=== PATIENT | male | born 1960 | race African-American/Black ===

== ENCOUNTER 2017-03-16 17:29 | Emergency (ER) | payer OTHER ==
[~2017-03-16] VITALS: Ht 172.7 cm; Wt 90.7 kg
--- NOTE | 2017-03-16 17:45 | NUR ---
pt sent fr [facility] for med clearance, voluntary admission to [facility] for SI, also c/o chronic lt calf pain, worsening x several days w/ swelling, ambulatory w/ cane, afebrile w/ resp even & unlabored, calm and cooperative at this time w/ nad noted. Urine obtained & sent. Pending further eval fr [facility].
--- NOTE | 2017-03-16 18:11 | NUR ---
ASSEMBLY MACHINE OPERATOR AT BEDSIDE FOR BLOOD DRAW.
--- NOTE | 2017-03-16 18:15 | NUR ---
Derek mcdonald in ED - 03/16/17 at 1915 by TANVIR US TECH AT [facility] FOR US PARAG [facility].
[2017-03-16 18:17] LABS: APPEARANCE,URINE Clear (CLEAR); BILIRUBIN,URINE Negative (NEGATIVE); BLOOD, URINE Negative Ery/uL (NEGATIVE); COLOR,URINE Yellow (YELLOW); KETONES,URINE Negative (NEGATIVE); LEUKOCYTE ESTERASE ,URINE Negative (NEGATIVE); NITRITE, URINE Negative (NEGATIVE); PROTEIN,URINE 30 mg/dl (NEGATIVE); UGLUCOSE Negative (NEGATIVE); UROBILINOGEN,URINE 0.2 EU/dL (0.2)
[2017-03-16 18:22] LABS: BASOPHILS # (AUTO) 0.1 /CMM (0.0-0.2); BASOPHILS % (AUTO) 0.6 % (0.0-2.0); EOSINOPHILS # (AUTO) 0.1 /CMM (0.0-0.7); EOSINOPHILS % (AUTO) 0.8 % (0.0-6.0); HEMATOCRIT 44 % (39-51); HEMOGLOBIN 14.8 g/dL (13.5-17.5); LYMPHOCYTES # (AUTO) 2.7 /CMM (0.8-4.8); LYMPHOCYTES % (AUTO) 28.8 % (20.0-44.0); MEAN CORPUSCULAR HEMOGLOBIN 31 PG (26.0-33.0); MEAN CORPUSCULAR HGB CONC 34 g/dl (31.0-36.0); MEAN CORPUSCULAR VOLUME 92 fL (80-96); MONOCYTES # (AUTO) 0.6 /CMM (0.1-1.30); MONOCYTES % (AUTO) 6.1 % (2.0-12.0); NEUTROPHILS # (AUTO) 5.9 /CMM (1.8-8.9); NEUTROPHILS % (AUTO) 63.7 % (43.0-81.0); PLATELET COUNT (AUTO) 248 /CMM (150-450); RDW COEFFICIENT OF VARIATION 13.3 (11.5-15.0); RED BLOOD CELL COUNT(AUTO) 4.75 MIL/uL (4.5-6.0); WHITE BLOOD COUNT (AUTO) 9.4 K/uL (4.3-11.0)
[2017-03-16 18:27] LABS: BACTERIA,URINE None seen /HPF (None Seen); RBC,URINE 0-2 /HPF (0-2); SQUAMOUS EPITHELIAL CELL,UR Rare /HPF (None Seen); WBC,URINE 0-2 /HPF (0-3)
[2017-03-16 18:34] LABS: CARBON DIOXIDE 24 mmol/L (21-32); CHLORIDE 103 mmol/L (98-107); CREATININE 0.9 mg/dL (0.6-1.3); GLUCOSE 122 mg/dL (74-106); POTASSIUM 4.2 mmol/L (3.5-5.1); SODIUM SERUM 138 mmol/L (136-145); UREA NITROGEN, BLOOD 11 mg/dL (7-18)
[2017-03-16 18:45] LABS: ALANINE AMINOTRANSFERASE 48 U/L (12-78); ALBUMIN 3.9 g/dL (3.4-5.0); ALCOHOL, BLOOD < 3 mg/dL (0-0); ALKALINE PHOSPHATASE 77 U/L (46-116); ASPARTATE AMINOTRANSFERASE 37 U/L (15-37); BILIRUBIN,DIRECT 0.1 mg/dL (0.0-0.2); BILIRUBIN,TOTAL 0.6 mg/dL (0.2-1.0); TOTAL PROTEIN, SERUM 7.7 g/dL (6.4-8.2)
[2017-03-16 18:46] LABS: ACETAMINOPHEN < 10 ug/ml (10-30); SALICYLATE 0.7 mg/dL (2.8-20.0)
--- NOTE | 2017-03-16 18:51 | NUR ---
pt resting comfortably in bed w/ resp even & unlabored, nad noted. Awaiting US DV LLE.
--- NOTE | 2017-03-16 19:16 | NUR ---
US TECH ETA FOR US DV LLE 5MINS AWAY.
--- NOTE | 2017-03-16 19:31 | NUR ---
U/S TECH AT BEDSIDE FOR BLE DUPLEX ULTRASOUND.
--- NOTE | 2017-03-16 20:29 | NUR ---
MOSHE MARCUM TO EXPEDITE REPORT OF VENOUS DUPLEX STUDY.
--- NOTE | 2017-03-16 20:57 | NUR ---
Patient discharged by taxi for transport to [facility] in stable condition. Pt accepted by Po Arrington at [facility] intake . Written and verbal after care instructions given. Patient verbalizes understanding of instruction. Pt ambulatory with a steady gait. VSS, NAD noted on steady gait. Denies complaint on DC.
[2017-03-16 21:55] VITALS: BP 113/39
== END 2017-03-16 20:57 ==
LOC: ER 17:33
DX: Z00.8 Encounter for other general examination (principal); F41.9 Anxiety disorder, unspecified; F20.9 Schizophrenia, unspecified; R60.0 Localized edema; I10 Essential (primary) hypertension
CPT/HCPCS: 36415; 80048-TC; 80076-TC; 80305; 81000-TC; 85025-TC; 93971-TC; A4606; G0480; Z7610

== ENCOUNTER 2017-07-25 07:34 | Emergency (ER) | payer OTHER ==
[~2017-07-25] VITALS: Ht 170.2 cm; Wt 86.2 kg
--- NOTE | 2017-07-25 07:45 | NUR ---
PRESENTS TO ER C/O DEPRESSION AND SI, "MY BROTHER JUST ." "[facility] PATIENT IS A/OX 4. BREATHING EVEN AND UNLABORED. NO SOB. VITALS STABLE. SAFETY AND COMFORT MEASURES IN PLACE. AWAITING MD ORDERS.
--- NOTE | 2017-07-25 08:12 | NUR ---
URINE OBTAINED AND SENT TO LAB .
--- NOTE | 2017-07-25 08:15 | NUR ---
COILER AT BEDSIDE FOR BLOOD DRAW.
[2017-07-25 08:42] LABS: BASOPHILS % (AUTO) 0.3 % (0.0-2.0); EOSINOPHILS # (AUTO) 0.1 /CMM (0.0-0.7); EOSINOPHILS % (AUTO) 0.9 % (0.0-6.0); HEMATOCRIT 48 % (39-51); HEMOGLOBIN 16.3 g/dL (13.5-17.5); LYMPHOCYTES # (AUTO) 2.7 /CMM (0.8-4.8); LYMPHOCYTES % (AUTO) 36.5 % (20.0-44.0); MEAN CORPUSCULAR HEMOGLOBIN 32 PG (26.0-33.0); MEAN CORPUSCULAR HGB CONC 34 g/dl (31.0-36.0); MEAN CORPUSCULAR VOLUME 92 fL (80-96); MONOCYTES # (AUTO) 0.5 /CMM (0.1-1.30); MONOCYTES % (AUTO) 6.8 % (2.0-12.0); NEUTROPHILS # (AUTO) 4.1 /CMM (1.8-8.9); NEUTROPHILS % (AUTO) 55.5 % (43.0-81.0); PLATELET COUNT (AUTO) 280 /CMM (150-450); RDW COEFFICIENT OF VARIATION 14.1 (11.5-15.0); RED BLOOD CELL COUNT(AUTO) 5.17 MIL/uL (4.5-6.0); WHITE BLOOD COUNT (AUTO) 7.4 K/uL (4.3-11.0)
[2017-07-25 08:49] LABS: CALCIUM, SERUM 9.1 mg/dL (8.5-10.1); CARBON DIOXIDE 27 mmol/L (21-32); CHLORIDE 104 mmol/L (98-107); CREATININE 0.9 mg/dL (0.6-1.3); GLUCOSE 95 mg/dL (74-106); POTASSIUM 3.9 mmol/L (3.5-5.1); SODIUM SERUM 138 mmol/L (136-145); UREA NITROGEN, BLOOD 10 mg/dL (7-18)
[2017-07-25 08:55] LABS: ALANINE AMINOTRANSFERASE 51 U/L (12-78); ALBUMIN 4.4 g/dL (3.4-5.0); ALCOHOL, BLOOD < 3 mg/dL (0-0); ALKALINE PHOSPHATASE 83 U/L (46-116); ASPARTATE AMINOTRANSFERASE 37 U/L (15-37); BILIRUBIN,DIRECT 0.1 mg/dL (0.0-0.2); BILIRUBIN,TOTAL 0.9 mg/dL (0.2-1.0); TOTAL PROTEIN, SERUM 8.4 g/dL (6.4-8.2)
[2017-07-25 08:56] LABS: ACETAMINOPHEN 0 ug/ml (10-30); SALICYLATE < 0.2 mg/dL (2.8-20.0)
[2017-07-25 09:07] LABS: APPEARANCE,URINE CLEAR (CLEAR); BILIRUBIN,URINE NEGATIVE (NEGATIVE); BLOOD, URINE NEGATIVE Ery/uL (NEGATIVE); COLOR,URINE DARK YELLO (YELLOW); KETONES,URINE NEGATIVE (NEGATIVE); LEUKOCYTE ESTERASE ,URINE NEGATIVE (NEGATIVE); NITRITE, URINE NEGATIVE (NEGATIVE); PROTEIN,URINE TRACE mg/dl (NEGATIVE); UGLUCOSE NEGATIVE (NEGATIVE); UROBILINOGEN,URINE 0.2 EU/dL (0.2)
[2017-07-25 09:23] LABS: BACTERIA,URINE Rare /HPF (None Seen); MUCUS,URINE Few /LPF (None Seen); RBC,URINE 0-2 /HPF (0-2); SQUAMOUS EPITHELIAL CELL,UR Few /HPF (None Seen); WBC,URINE 0-2 /HPF (0-3)
--- NOTE | 2017-07-25 09:33 | NUR ---
FAXED PT'S LAB TESTS TO [facility] [phone]
[2017-07-25 10:27] VITALS: BP 148/92
--- NOTE | 2017-07-25 10:31 | NUR ---
Patient discharged to [facility] in stable condition. Written and verbal after care instructions given. Patient verbalizes understanding of instruction.
== END 2017-07-25 10:31 ==
LOC: ER 07:36
DX: R44.0 Auditory hallucinations (principal); R45.851 Suicidal ideations; F20.9 Schizophrenia, unspecified; F31.9 Bipolar disorder, unspecified; I10 Essential (primary) hypertension; F10.10 Alcohol abuse, uncomplicated; F17.200 Nicotine dependence, unspecified, uncomplicated
CPT/HCPCS: 36415; 80048; 80076; 80305; 80329; 81001; 85025; 99285; A4606; G0480 ×2; Z7610; 81000-TC

== ENCOUNTER 2017-12-27 07:35 | Emergency (ER) | payer OTHER ==
[~2017-12-27] VITALS: Ht 167.6 cm; Wt 90.7 kg
[2017-12-27 07:35] VITALS: BP 135/73
--- NOTE | 2017-12-27 07:40 | NUR ---
AAOX3, SENT FROM [facility] FOR MEDICAL CLEARANCE. RR IS EVEN AND UNLABORED WITH NAD NOTED. SKIN IS WARM AND DRY. AWAITING MD FOR EVAL.
[2017-12-27 09:14] LABS: BASOPHILS % (AUTO) 0.7 % (0.0-2.0); EOSINOPHILS % (AUTO) 2.2 % (0.0-6.0); HEMATOCRIT 45 % (39-51); HEMOGLOBIN 15.1 g/dL (13.5-17.5); LYMPHOCYTES # (AUTO) 2.9 /CMM (0.8-4.8); LYMPHOCYTES % (AUTO) 46.2 % (20.0-44.0); MEAN CORPUSCULAR HGB CONC 34 g/dl (31.0-36.0); MEAN CORPUSCULAR VOLUME 92 fL (80-96); MONOCYTES # (AUTO) 0.4 /CMM (0.1-1.30); MONOCYTES % (AUTO) 6.6 % (2.0-12.0); NEUTROPHILS # (AUTO) 2.8 /CMM (1.8-8.9); NEUTROPHILS % (AUTO) 44.3 % (43.0-81.0); PLATELET COUNT (AUTO) 256 /CMM (150-450); RDW COEFFICIENT OF VARIATION 13.1 (11.5-15.0); RED BLOOD CELL COUNT(AUTO) 4.83 MIL/uL (4.5-6.0); WHITE BLOOD COUNT (AUTO) 6.2 K/uL (4.3-11.0)
[2017-12-27 09:25] LABS: CALCIUM, SERUM 8.7 mg/dL (8.5-10.1); CARBON DIOXIDE 29 mmol/L (21-32); CHLORIDE 105 mmol/L (98-107); CREATININE 0.8 mg/dL (0.6-1.3); GLUCOSE 89 mg/dL (74-106); POTASSIUM 4.2 mmol/L (3.5-5.1); SODIUM SERUM 137 mmol/L (136-145); UREA NITROGEN, BLOOD 9 mg/dL (7-18)
[2017-12-27 09:26] LABS: ACETAMINOPHEN 0 ug/ml (10-30); ALCOHOL, BLOOD < 3 mg/dL (0-0); SALICYLATE < 2.8 mg/dL (2.8-20.0)
--- NOTE | 2017-12-27 09:41 | NUR ---
CALLED [facility] 20 MINUTES. TRIP # [id number]
== END 2017-12-27 10:52 ==
LOC: ER 07:36
DX: F28 Other psychotic disorder not due to a substance or known physiological condition (principal); I10 Essential (primary) hypertension; F20.9 Schizophrenia, unspecified; F32.9 Major depressive disorder, single episode, unspecified; F17.200 Nicotine dependence, unspecified, uncomplicated
CPT/HCPCS: 36415; 80048; 80305; 80329; 85025; 99285; A4606; G0480 ×2; Z7610

== ENCOUNTER 2018-09-30 11:34 | Emergency (ER) | payer OTHER ==
[~2018-09-30] VITALS: Ht 172.7 cm; Wt 103.4 kg
--- NOTE | 2018-09-30 11:40 | NUR ---
BIB SELF W SI "BEEN HEARING VOICES TO CUT MY WRIST" STARTED YESTERDAY, HX OF DEPRESSION/BIPOLAR, TO ER BED 12, HOOKED TO MONITOR, AWAITING MD DUNAWAY
--- NOTE | 2018-09-30 11:48 | NUR ---
DR PEPPER AT BEDSIDE
--- NOTE | 2018-09-30 11:59 | NUR ---
PT CAN'T PROVIDE URINE SAMPLE AT THIS TIME
[2018-09-30 12:04] LABS: BASOPHILS % (AUTO) 0.1 % (0.0-2.0); EOSINOPHILS % (AUTO) 1.1 % (0.0-6.0); HEMATOCRIT 44 % (39-51); LYMPHOCYTES # (AUTO) 1.9 /CMM (0.8-4.8); LYMPHOCYTES % (AUTO) 27.3 % (20.0-44.0); MEAN CORPUSCULAR HGB CONC 34 g/dl (31.0-36.0); MEAN CORPUSCULAR VOLUME 94 fL (80-96); MONOCYTES # (AUTO) 0.7 /CMM (0.1-1.30); MONOCYTES % (AUTO) 10.7 % (2.0-12.0); NEUTROPHILS # (AUTO) 4.1 /CMM (1.8-8.9); NEUTROPHILS % (AUTO) 60.8 % (43.0-81.0); PLATELET COUNT (AUTO) 181 /CMM (150-450); RED BLOOD CELL COUNT(AUTO) 4.66 MIL/uL (4.5-6.0); WHITE BLOOD COUNT (AUTO) 6.8 K/uL (4.3-11.0)
--- NOTE | 2018-09-30 12:05 | NUR ---
URINE SAMPLE SENT TO LAB
[2018-09-30 12:14] LABS: CALCIUM, SERUM 8.8 mg/dL (8.5-10.1); CARBON DIOXIDE 29 mmol/L (21-32); CHLORIDE 105 mmol/L (98-107); CREATININE 0.9 mg/dL (0.6-1.3); GLUCOSE 96 mg/dL (74-106); POTASSIUM 3.8 mmol/L (3.5-5.1); SODIUM SERUM 142 mmol/L (136-145); UREA NITROGEN, BLOOD 12 mg/dL (7-18)
[2018-09-30 12:19] LABS: ALANINE AMINOTRANSFERASE 81 U/L (12-78); ALBUMIN 3.8 g/dL (3.4-5.0); ALCOHOL, BLOOD < 3 mg/dL (0-0); ALKALINE PHOSPHATASE 70 U/L (46-116); ASPARTATE AMINOTRANSFERASE 64 U/L (15-37); BILIRUBIN,DIRECT 0.2 mg/dL (0.0-0.2); BILIRUBIN,TOTAL 0.8 mg/dL (0.2-1.0); TOTAL PROTEIN, SERUM 7.9 g/dL (6.4-8.2)
[2018-09-30 12:20] LABS: ACETAMINOPHEN < 2 ug/ml (10-30); SALICYLATE 0.9 mg/dL (2.8-20.0)
[2018-09-30 12:28] LABS: APPEARANCE,URINE CLEAR (CLEAR); BILIRUBIN,URINE NEGATIVE (NEGATIVE); BLOOD, URINE NEGATIVE Ery/uL (NEGATIVE); COLOR,URINE YELLOW (YELLOW); KETONES,URINE TRACE (NEGATIVE); LEUKOCYTE ESTERASE ,URINE NEGATIVE (NEGATIVE); NITRITE, URINE NEGATIVE (NEGATIVE); PH,URINE 6.5 (5.0-8.0); PROTEIN,URINE NEGATIVE (NEGATIVE); UGLUCOSE NEGATIVE (NEGATIVE)
--- NOTE | 2018-09-30 12:31 | NUR ---
CIVILIAN TECHNICIAN AT BEDSIDE
[2018-09-30 12:34] LABS: SQUAMOUS EPITHELIAL CELL,UR Rare /HPF (None Seen)
[2018-09-30 12:35] LABS: MUCUS,URINE Few /LPF (None Seen)
[2018-09-30 12:36] LABS: BACTERIA,URINE Rare /HPF (None Seen); RBC,URINE 0-2 /HPF (0-2); WBC,URINE 0-2 /HPF (0-3)
[2018-09-30] MEDS ORDERED: LORAZEPAM 1 MG TABLET PO ONE ×2 (13:00→18:00)
[2018-09-30] MEDS ORDERED: LORAZEPAM 1 MG TABLET ONE ×2 (13:19→17:51)
--- NOTE | 2018-09-30 13:30 | NUR ---
PT COMFORTABLY SLEEPING IN BED, HOOKED TO MONITOR, WILL CONTINUE TO MONITOR
--- NOTE | 2018-09-30 16:01 | NUR ---
PROVIDED PT W MEAL TRAY
--- NOTE | 2018-09-30 17:52 | NUR ---
[facility] [phone]
--- NOTE | 2018-09-30 17:55 | NUR ---
PROVIDED PT WITH ORANGE JUICE AND MILK
--- NOTE | 2018-09-30 19:48 | NUR ---
PT COMFORTABLE IN BED ASLEEP. VSS. WILL CONTINUE TO MONITOR.
--- NOTE | 2018-09-30 22:49 | NUR ---
PT IN BED COMFORTABLY ASLEEP. EASILY AROUSED BY VOICE. VSS. WILL CONTINUE TO MONITOR
--- NOTE | 2018-09-30 23:26 | NUR ---
PER ALEKS NO BEDS AVAILABLE AT [facility] AND [facility]. PT CAN STAY UNTIL MORNING WHEN BEDS AT [facility] BECOME AVAILABLE. OK TO VOLUNTARILY DISCHARGE.
--- NOTE | 2018-09-30 23:26 | NUR ---
SPOKE TO [facility], NO AVAILABLE BED IN [facility], WILL WAIT FOR DISCHARGES IN THE MORNING AND FOLLOW UP.
--- NOTE | 2018-10-01 00:20 | NUR ---
PT IN BED COMFORTABLY ASLEEP, EASILY AROUSED BY VOICE, HOOKED TO MONITOR, WILL CONTINUE TO MONITOR.
--- NOTE | 2018-10-01 00:32 | NUR ---
PROVIDED PT W TUNA SANDWICH AND ORANGE JUICE. PT TOLERATING PO WELL. PROVIDED WITH WARM BLANKETS.
[2018-10-01] MEDS ORDERED: TRAZODONE 50 MG TABLET ONE (00:37)
[2018-10-01] MEDS ORDERED: TRAZODONE 50 MG TABLET PO ONE (01:00)
--- NOTE | 2018-10-01 02:23 | NUR ---
PT IN BED COMFORTABLY ASLEEP, HOOKED TO MONITOR, WILL CONTINUE TO MONITOR.
--- NOTE | 2018-10-01 02:31 | NUR ---
REPORT GIVEN TO ELIECER MOON FOR JAGDISH
--- NOTE | 2018-10-01 04:40 | NUR ---
PT RESTING COMFORTABLY IN BED. VITAL SIGNS STABLE. WILL CONTINUE TO MONITOR
--- NOTE | 2018-10-01 07:30 | NUR ---
received report from night RN. Patient is awake, resting, denies any pain at this time. Awaiting for bed at [facility]. Kept comfortable. will continue to monitor accordingly.
--- NOTE | 2018-10-01 08:22 | NUR ---
JEEVAN ,INTAKE, CALLED AT [facility], ACCEPTED
--- NOTE | 2018-10-01 08:28 | NUR ---
[facility] CALLED. ETA 1000. TRIP #[id number]
[2018-10-01 09:16] VITALS: BP 147/99
--- NOTE | 2018-10-01 11:00 | NUR ---
TRANSFERED TO [facility]. STABLE CONDITION.
== END 2018-10-01 11:00 ==
LOC: ER 11:41
DX: F31.9 Bipolar disorder, unspecified (principal); F19.10 Other psychoactive substance abuse, uncomplicated; I10 Essential (primary) hypertension; F20.9 Schizophrenia, unspecified; F17.200 Nicotine dependence, unspecified, uncomplicated; Z98.890 Other specified postprocedural states
CPT/HCPCS: 36415; 80048; 80076; 80305; 80307; 80329; 81001; 85025; 99285; A4606; G0480; 81000-TC

== ENCOUNTER 2018-11-07 17:31 | Emergency (ER) | payer OTHER ==
[~2018-11-07] VITALS: Ht 170.2 cm; Wt 99.8 kg
[2018-11-07] MEDS ORDERED: diphenhydrAMINE HCL 25 MG CAPSULE PO ONE (18:00)
[2018-11-07] MEDS ORDERED: LORAZEPAM 1 MG TABLET PO ONE (18:00)
[2018-11-07 18:12] LABS: BASOPHILS % (AUTO) 0.5 % (0.0-2.0); EOSINOPHILS % (AUTO) 0.6 % (0.0-6.0); HEMATOCRIT 45 % (39-51); HEMOGLOBIN 15.7 g/dL (13.5-17.5); LYMPHOCYTES # (AUTO) 3.9 /CMM (0.8-4.8); LYMPHOCYTES % (AUTO) 42.5 % (20.0-44.0); MEAN CORPUSCULAR HGB CONC 35 g/dl (31.0-36.0); MEAN CORPUSCULAR VOLUME 93 fL (80-96); MONOCYTES # (AUTO) 0.7 /CMM (0.1-1.30); MONOCYTES % (AUTO) 8.1 % (2.0-12.0); NEUTROPHILS # (AUTO) 4.4 /CMM (1.8-8.9); NEUTROPHILS % (AUTO) 48.3 % (43.0-81.0); PLATELET COUNT (AUTO) 340 /CMM (150-450); RED BLOOD CELL COUNT(AUTO) 4.88 MIL/uL (4.5-6.0); WHITE BLOOD COUNT (AUTO) 9.1 K/uL (4.3-11.0)
[2018-11-07 18:15] LABS: APPEARANCE,URINE Clear (CLEAR); BILIRUBIN,URINE Negative (NEGATIVE); BLOOD, URINE Negative Ery/uL (NEGATIVE); COLOR,URINE Yellow (YELLOW); KETONES,URINE Negative (NEGATIVE); LEUKOCYTE ESTERASE ,URINE Negative (NEGATIVE); NITRITE, URINE Negative (NEGATIVE); PH,URINE 5.5 (5.0-8.0); PROTEIN,URINE 30 mg/dl (NEGATIVE); UGLUCOSE Negative (NEGATIVE); UROBILINOGEN,URINE 0.2 EU/dL (0.2)
[2018-11-07 18:20] LABS: CALCIUM, SERUM 9.3 mg/dL (8.5-10.1); CARBON DIOXIDE 27 mmol/L (21-32); CHLORIDE 103 mmol/L (98-107); CREATININE 0.9 mg/dL (0.6-1.3); GLUCOSE 115 mg/dL (74-106); POTASSIUM 3.4 mmol/L (3.5-5.1); SODIUM SERUM 138 mmol/L (136-145); UREA NITROGEN, BLOOD 9 mg/dL (7-18)
[2018-11-07 18:25] LABS: BACTERIA,URINE Rare /HPF (None Seen); MUCUS,URINE Few /LPF (None Seen); RBC,URINE 0-2 /HPF (0-2); SQUAMOUS EPITHELIAL CELL,UR Rare /HPF (None Seen); URINE AMORPHOUS URATE Few /HPF (None Seen); WBC,URINE 0-2 /HPF (0-3)
[2018-11-07 18:26] LABS: ACETAMINOPHEN < 5 ug/ml (10-30); ALANINE AMINOTRANSFERASE 48 U/L (12-78); ALBUMIN 4.5 g/dL (3.4-5.0); ALCOHOL, BLOOD < 5 mg/dL (0-0); ALKALINE PHOSPHATASE 76 U/L (46-116); ASPARTATE AMINOTRANSFERASE 29 U/L (15-37); BILIRUBIN,DIRECT 0.1 mg/dL (0.0-0.2); BILIRUBIN,TOTAL 0.5 mg/dL (0.2-1.0); SALICYLATE 0.6 mg/dL (2.8-20.0); TOTAL PROTEIN, SERUM 8.1 g/dL (6.4-8.2)
--- NOTE | 2018-11-07 18:52 | NUR ---
CALLED [facility], ONE HOUR ETA
--- NOTE | 2018-11-07 19:30 | NUR ---
ASSUMED CARE 193
[2018-11-07] MEDS ORDERED: LORAZEPAM 1 MG TABLET ONE (19:42)
[2018-11-07] MEDS ORDERED: diphenhydrAMINE HCL 25 MG CAPSULE ONE (19:42)
--- NOTE | 2018-11-07 22:38 | NUR ---
PT ACCEPTED TO [facility] ADMITTING PHYSICIAN: DR. ELI NUMBER FOR REPORT: [phone] ETA 0000, TRIP NUMBER [id number]
--- NOTE | 2018-11-08 00:04 | NUR ---
PT REFUSED TO GO TO [facility], CALLED INTAKE AND PT NOW BEING ADMITTED TO [facility]. ADMITTING PHYSICIAN DR. UPTON NUMBER FOR REPORT: [phone] EXT [phone]
--- NOTE | 2018-11-08 00:14 | NUR ---
GAVE REPORT TO RED AT [facility] FOR JAGDISH
[2018-11-08 00:40] VITALS: BP 135/94
--- NOTE | 2018-11-08 00:43 | NUR ---
GAVE REPORT TO NATALIA FOR TRANSPORTATION JAGDISH
== END 2018-11-08 00:47 | disposition short-term general hospital (02) ==
LOC: ER 17:32
DX: R45.851 Suicidal ideations (principal); I10 Essential (primary) hypertension; F17.200 Nicotine dependence, unspecified, uncomplicated; Z98.890 Other specified postprocedural states
CPT/HCPCS: 36415; 80048; 80076; 80305; 80307; 80329; 81001; 85025; 99285; G0480; Q0163; 81000-TC

== ENCOUNTER 2019-01-27 11:07 | Emergency (ER) | payer OTHER ==
[~2019-01-27] VITALS: Ht 170.2 cm; Wt 99.3 kg
--- NOTE | 2019-01-27 11:13 | NUR ---
WENT TO [facility] FOR VOLLUNTARY ADMISSION BUT WAS TOLD TO COME HERE IN[facility] FOR MEDICAL CLEARANCE, "FEELING SUICIDAL". STATES HEARING VOICES THAT TELL HIM TO CUT HIMSELF. DENIES HI/VH. NO OTHER COMPLAINTS AT THIS TIME. SUICIDE PRECAUTIONS IMPLEMENTED. MADE COMFORTABLE. DR ADLER AT BEDSIDE FOR EVAL.
--- NOTE | 2019-01-27 11:14 | NUR ---
PT IS CALM AND COOPERATIVE
--- NOTE | 2019-01-27 11:36 | NUR ---
GOWNED, ALL BELONGINGS REMOVED FROM ROOM, SECURITY CALLED FOR WANDING
[2019-01-27 11:45] LABS: BASOPHILS % (AUTO) 0.2 % (0.0-2.0); HEMATOCRIT 49 % (39-51); HEMOGLOBIN 16.7 g/dL (13.5-17.5); LYMPHOCYTES # (AUTO) 2.6 /CMM (0.8-4.8); LYMPHOCYTES % (AUTO) 24.2 % (20.0-44.0); MEAN CORPUSCULAR HGB CONC 34 g/dl (31.0-36.0); MEAN CORPUSCULAR VOLUME 94 fL (80-96); MONOCYTES # (AUTO) 0.8 /CMM (0.1-1.30); MONOCYTES % (AUTO) 7.5 % (2.0-12.0); NEUTROPHILS # (AUTO) 7.1 /CMM (1.8-8.9); NEUTROPHILS % (AUTO) 67.1 % (43.0-81.0); PLATELET COUNT (AUTO) 200 /CMM (150-450); RED BLOOD CELL COUNT(AUTO) 5.18 MIL/uL (4.5-6.0); WHITE BLOOD COUNT (AUTO) 10.6 K/uL (4.3-11.0)
[2019-01-27 11:49] LABS: CALCIUM, SERUM 8.8 mg/dL (8.5-10.1); CARBON DIOXIDE 25 mmol/L (21-32); CHLORIDE 102 mmol/L (98-107); CREATININE 0.8 mg/dL (0.6-1.3); GLUCOSE 90 mg/dL (74-106); POTASSIUM 3.8 mmol/L (3.5-5.1); SODIUM SERUM 137 mmol/L (136-145); UREA NITROGEN, BLOOD 10 mg/dL (7-18)
[2019-01-27] MEDS ORDERED: OLANZAPINE 10 MG VIAL IM ONE ×2 (11:53→12:00)
[2019-01-27] MEDS ORDERED: LORAZEPAM INJ 2 MG/ML VIAL ONE (11:54)
[2019-01-27 11:58] LABS: APPEARANCE,URINE Clear (CLEAR); BILIRUBIN,URINE Negative (NEGATIVE); BLOOD, URINE Negative Ery/uL (NEGATIVE); COLOR,URINE Yellow (YELLOW); KETONES,URINE Negative (NEGATIVE); LEUKOCYTE ESTERASE ,URINE Negative (NEGATIVE); NITRITE, URINE Negative (NEGATIVE); PROTEIN,URINE Negative (NEGATIVE); UGLUCOSE Negative (NEGATIVE); UROBILINOGEN,URINE 0.2 EU/dL (0.2)
[2019-01-27] MEDS ORDERED: LORAZEPAM INJ 2 MG/ML VIAL IM ONE (12:00)
[2019-01-27 12:03] LABS: ALANINE AMINOTRANSFERASE 132 U/L (12-78); ALBUMIN 4.3 g/dL (3.4-5.0); ALKALINE PHOSPHATASE 94 U/L (46-116); ASPARTATE AMINOTRANSFERASE 86 U/L (15-37); BILIRUBIN,DIRECT 0.2 mg/dL (0.0-0.2); BILIRUBIN,TOTAL 0.8 mg/dL (0.2-1.0); SALICYLATE 1.3 mg/dL (2.8-20.0); TOTAL PROTEIN, SERUM 8.4 g/dL (6.4-8.2)
[2019-01-27 12:04] LABS: ACETAMINOPHEN 0 ug/ml (10-30); ALCOHOL, BLOOD < 3 mg/dL (0-0)
--- NOTE | 2019-01-27 13:02 | NUR ---
Patient is resting comfortably in bed with eyes closed. Easily aroused. VSS
--- NOTE | 2019-01-27 15:25 | NUR ---
CALL RECEIVED FROM MARION,ROLANDO AT [facility],ACCEPTED BY DR UPTON,REPORT TO [phone] EXT. [phone]
[2019-01-27 16:10] VITALS: BP 148/84
--- NOTE | 2019-01-27 16:17 | NUR ---
REPORT GIVEN TO SCREW DRIVER OPERATOR AT [facility], AND [id number] FOR JAGDISH. Patient discharged to TRANSPORT in stable condition. Written and verbal after care instructions given. Patient verbalizes understanding of instruction.
== END 2019-01-27 16:19 ==
LOC: ER 11:10
DX: F20.9 Schizophrenia, unspecified (principal); I10 Essential (primary) hypertension; F32.9 Major depressive disorder, single episode, unspecified; F17.200 Nicotine dependence, unspecified, uncomplicated; Z98.890 Other specified postprocedural states
CPT/HCPCS: 36415; 80048; 80076; 80305; 80307; 80329; 81001; 85025; 96372 ×2; 99285; G0480; J2060; J3490; 81000-TC

== ENCOUNTER 2019-04-10 17:55 | Emergency (ER) | payer OTHER ==
[~2019-04-10] VITALS: Ht 170.2 cm; Wt 99.8 kg
--- NOTE | 2019-04-10 18:05 | NUR ---
"+SI WITH VOICES TELLING HIM TO WALK INTO TRAFFIC, SEEKING VOLUNTARY AT [facility]" PT AAOX4, CALM AND COOPERATIVE, PT ON MONITOR, VSS, NAD NOTED, ALL BELONGINGS IN LOCKER, SECURITY CALLED TO BE WANDED FOR SAFETY, PENDING ER PROVIDER GUME
[2019-04-10 18:30] LABS: BASOPHILS # (AUTO) 0.1 /CMM (0.0-0.2); EOSINOPHILS % (AUTO) 2.7 % (0.0-6.0); HEMATOCRIT 47 % (39-51); HEMOGLOBIN 16.1 g/dL (13.5-17.5); LYMPHOCYTES # (AUTO) 3.9 /CMM (0.8-4.8); LYMPHOCYTES % (AUTO) 43.3 % (20.0-44.0); MEAN CORPUSCULAR HGB CONC 34 g/dl (31.0-36.0); MEAN CORPUSCULAR VOLUME 94 fL (80-96); MONOCYTES # (AUTO) 0.7 /CMM (0.1-1.30); MONOCYTES % (AUTO) 7.9 % (2.0-12.0); NEUTROPHILS # (AUTO) 4.1 /CMM (1.8-8.9); NEUTROPHILS % (AUTO) 45.1 % (43.0-81.0); PLATELET COUNT (AUTO) 287 /CMM (150-450); RED BLOOD CELL COUNT(AUTO) 5.04 MIL/uL (4.5-6.0); WHITE BLOOD COUNT (AUTO) 9.1 K/uL (4.3-11.0)
[2019-04-10 18:39] LABS: CALCIUM, SERUM 9.5 mg/dL (8.5-10.1); CARBON DIOXIDE 24 mmol/L (21-32); CHLORIDE 104 mmol/L (98-107); CREATININE 0.9 mg/dL (0.6-1.3); GLUCOSE 93 mg/dL (74-106); POTASSIUM 4.2 mmol/L (3.5-5.1); SODIUM SERUM 139 mmol/L (136-145); UREA NITROGEN, BLOOD 8 mg/dL (7-18)
[2019-04-10 18:45] LABS: ALANINE AMINOTRANSFERASE 104 U/L (12-78); ALBUMIN 4.3 g/dL (3.4-5.0); ALCOHOL, BLOOD < 3 mg/dL (0-0); ALKALINE PHOSPHATASE 88 U/L (46-116); ASPARTATE AMINOTRANSFERASE 54 U/L (15-37); BILIRUBIN,DIRECT 0.1 mg/dL (0.0-0.2); BILIRUBIN,TOTAL 0.3 mg/dL (0.2-1.0); TOTAL PROTEIN, SERUM 8.7 g/dL (6.4-8.2)
[2019-04-10 18:46] LABS: ACETAMINOPHEN < 2 ug/ml (10-30)
[2019-04-10 18:51] LABS: APPEARANCE,URINE Clear (CLEAR); BILIRUBIN,URINE Negative (NEGATIVE); BLOOD, URINE Negative Ery/uL (NEGATIVE); COLOR,URINE Yellow (YELLOW); KETONES,URINE Negative (NEGATIVE); LEUKOCYTE ESTERASE ,URINE Negative (NEGATIVE); NITRITE, URINE Negative (NEGATIVE); PH,URINE 5.5 (5.0-8.0); PROTEIN,URINE Negative (NEGATIVE); UGLUCOSE Negative (NEGATIVE); UROBILINOGEN,URINE 0.2 EU/dL (0.2)
[2019-04-10] MEDS ORDERED: LORAZEPAM 1 MG TABLET ONE (19:41)
--- NOTE | 2019-04-10 19:57 | NUR ---
NO BEDS AVAILABLE AT [facility] AT THIS TIME. POSSIBLE BED AVAILABLE AT [facility], WAITING FOR CALL BACK
[2019-04-10] MEDS ORDERED: LORAZEPAM 1 MG TABLET PO ONE (20:00)
--- NOTE | 2019-04-10 20:25 | NUR ---
PT SPECIFICALLY [facility] INFORMED PT NO BEDS AVAILABLE. PT VERBALIZED UNDERSTANDING, ER AWARE
[2019-04-10] MEDS ORDERED: HALOPERIDOL LACTATE INJ 5 MG/ML VIAL ONE (23:14)
[2019-04-10] MEDS ORDERED: LORAZEPAM INJ 2 MG/ML VIAL ONE (23:14)
--- NOTE | 2019-04-10 23:20 | NUR ---
PT APPEARS TO BE MORE AGITATED, DR. GARCIA AWARE WITH NEW ORDERS.
[2019-04-10] MEDS ORDERED: HALOPERIDOL LACTATE INJ 5 MG/ML VIAL IM ONE (23:30)
[2019-04-11] MEDS ORDERED: LORAZEPAM INJ 2 MG/ML VIAL IM ONE
--- NOTE | 2019-04-11 00:47 | NUR ---
URINE SENT TO LAB
--- NOTE | 2019-04-11 01:28 | NUR ---
Patient is resting comfortably in bed with eyes closed. Easily aroused. VSS
--- NOTE | 2019-04-11 01:31 | NUR ---
CLINICAL INFORMATION FAXED TO [facility]
--- NOTE | 2019-04-11 04:13 | NUR ---
PT ACCEPTED TO [facility] ROOM 108-A ACCEPTING MD: DR. MENESES / DR. SPARROW NUMBER FOR REPORT: [phone]
--- NOTE | 2019-04-11 04:24 | NUR ---
GAVE REPORT TO THI MOON FROM [facility] FOR JAGDISH
--- NOTE | 2019-04-11 05:46 | NUR ---
report given to EMT from [facility] ambulance
[2019-04-11 05:47] VITALS: BP 126/78
--- NOTE | 2019-04-11 05:48 | NUR ---
APA 180 AT BEDSIDE FOR TRANSPORT TO [facility]. REPORT GIVEN. PT IS STABLE FOR TRANSPORT
== END 2019-04-11 05:51 ==
LOC: ER 17:55
DX: R45.851 Suicidal ideations (principal); R44.0 Auditory hallucinations; L90.5 Scar conditions and fibrosis of skin; I10 Essential (primary) hypertension; F17.200 Nicotine dependence, unspecified, uncomplicated; Z98.890 Other specified postprocedural states
CPT/HCPCS: 36415; 80048; 80076; 80305; 80307; 80329; 81001; 85025; 96372 ×2; 99285; G0480; J1630; J2060; J7030; 81000-TC

== ENCOUNTER 2019-07-26 11:20 | Emergency (ER) | payer OTHER ==
[~2019-07-26] VITALS: Ht 170.2 cm; Wt 104.3 kg
--- NOTE | 2019-07-26 11:33 | NUR ---
URINE SPECIMEN COLLECTED AND SENT TO LAB.
--- NOTE | 2019-07-26 11:34 | NUR ---
SEEN AND EXAMINED BY
[2019-07-26 11:47] LABS: APPEARANCE,URINE Clear (CLEAR); BILIRUBIN,URINE Negative (NEGATIVE); BLOOD, URINE Negative Ery/uL (NEGATIVE); COLOR,URINE Yellow (YELLOW); KETONES,URINE Negative (NEGATIVE); LEUKOCYTE ESTERASE ,URINE Negative (NEGATIVE); NITRITE, URINE Negative (NEGATIVE); PH,URINE 6.5 (5.0-8.0); PROTEIN,URINE Negative (NEGATIVE); UGLUCOSE Negative (NEGATIVE); UROBILINOGEN,URINE 0.2 EU/dL (0.2)
--- NOTE | 2019-07-26 11:47 | NUR ---
ER PHLEB AT BEDSIDE FOR BLOOD DRAW.
--- NOTE | 2019-07-26 11:49 | NUR ---
SECURITY AT BEDSIDE FOR WANDING
[2019-07-26 11:59] LABS: BASOPHILS # (AUTO) 0.1 /CMM (0.0-0.2); BASOPHILS % (AUTO) 1.1 % (0.0-2.0); HEMATOCRIT 48 % (39-51); HEMOGLOBIN 16.2 g/dL (13.5-17.5); LYMPHOCYTES # (AUTO) 2.7 /CMM (0.8-4.8); LYMPHOCYTES % (AUTO) 36.4 % (20.0-44.0); MEAN CORPUSCULAR HGB CONC 34 g/dl (31.0-36.0); MEAN CORPUSCULAR VOLUME 93 fL (80-96); MONOCYTES # (AUTO) 0.5 /CMM (0.1-1.30); MONOCYTES % (AUTO) 6.9 % (2.0-12.0); NEUTROPHILS # (AUTO) 4.1 /CMM (1.8-8.9); NEUTROPHILS % (AUTO) 54.6 % (43.0-81.0); PLATELET COUNT (AUTO) 262 /CMM (150-450); RED BLOOD CELL COUNT(AUTO) 5.15 MIL/uL (4.5-6.0); WHITE BLOOD COUNT (AUTO) 7.5 K/uL (4.3-11.0)
[2019-07-26] MEDS ORDERED: OLANZAPINE 5 MG TABLET PO ONE (12:00)
[2019-07-26] MEDS ORDERED: OLANZAPINE 5 MG TABLET ONE (12:14)
[2019-07-26 12:28] LABS: CALCIUM, SERUM 9.2 mg/dL (8.5-10.1); CARBON DIOXIDE 28 mmol/L (21-32); CHLORIDE 103 mmol/L (98-107); CREATININE 0.8 mg/dL (0.6-1.3); GLUCOSE 89 mg/dL (74-106); POTASSIUM 3.7 mmol/L (3.5-5.1); SODIUM SERUM 138 mmol/L (136-145); UREA NITROGEN, BLOOD 9 mg/dL (7-18)
[2019-07-26 12:42] LABS: ACETAMINOPHEN < 10 ug/ml (10-30); ALANINE AMINOTRANSFERASE 79 U/L (12-78); ALBUMIN 4.1 g/dL (3.4-5.0); ALCOHOL, BLOOD < 3 mg/dL (0-0); ALKALINE PHOSPHATASE 81 U/L (46-116); ASPARTATE AMINOTRANSFERASE 40 U/L (15-37); BILIRUBIN,DIRECT 0.1 mg/dL (0.0-0.2); BILIRUBIN,TOTAL 0.3 mg/dL (0.2-1.0); SALICYLATE 1.4 mg/dL (2.8-20.0); TOTAL PROTEIN, SERUM 8.3 g/dL (6.4-8.2)
--- NOTE | 2019-07-26 12:52 | NUR ---
ABBY contacted Bharath at [facility] and gave him pt's information regarding bed availability for voluntary admission. Pt. is suicidal with a plan to cut his wrists.
--- NOTE | 2019-07-26 13:07 | NUR ---
Clinicals [facility].
--- NOTE | 2019-07-26 13:20 | NUR ---
ABBY received a call from [facility] intake dept. informing ABBY that pt. has been accepted to the [place] location under Dr. Anderson/Dr. Castro. Report needs to be called to . ABBY updated RED Do.
--- NOTE | 2019-07-26 13:23 | NUR ---
ABBY HOUSE AT BEDSIDE
--- NOTE | 2019-07-26 13:52 | NUR ---
DR ALEXSANDRA NEGRON [phone] [facility]
--- NOTE | 2019-07-26 14:00 | NUR ---
Social service consult requested by Dr. Belle for suicidal ideation with a plan to cut his wrists. Pt. is a 59 year old male who came to [facility] seeking voluntary psychiatric admission. SW met with the pt. bedside. Pt. is alert and oriented x 4. Pt. is guarded but cooperative with SW. Pt. states he recently graduated from the [facility] alcohol treatment program. He was there for the past 4 months. Pt. now resides at a transitional housing located at [address] [place] [address]. Pt. has a psychiatric diagnosis of Schizophrenia, Bipolar and Depression. Pt's current medications are Seroquel and Trazodone. Pt. states he is feeling suicidal and has a plan to cut his wrists. Pt. is seeking voluntary psychiatric admission at [facility]. Pt. was under the care of Dr. Anderson at [facility] four months and and is requesting for Dr. Anderson as his psychiatrist. SW informed pt. she has sent a referral to [facility] for admission. Pt. denies any current drug and alcohol use. Pt. receives SSI monthly. Pt. is part of a [employer] program and is awaiting his housing voucher. No other social service needs are requested at this time. SW is available, if needed.
--- NOTE | 2019-07-26 14:05 | NUR ---
CALLED CALL THE CAR [phone] [facility]. THEY ARE TRYING TO FIND A ABMULANCE FOR US AND WILL CALL US BACK WITH ETA... [phone]
[2019-07-26 14:30] VITALS: BP 132/75
--- NOTE | 2019-07-26 14:35 | NUR ---
REPORT GIVEN TO EMT FOR PT TRANSFER TO [facility].
--- NOTE | 2019-07-26 14:41 | NUR ---
REPORT GIVEN TO GERA PT WILL BE GOING TO 110.
--- NOTE | 2019-07-26 14:52 | NUR ---
PT LEFT VIA [facility], -SOB, NAD NOTED, VSS, REPORT GIVEN TO STAFF
== END 2019-07-26 14:54 ==
LOC: ER 11:23
DX: R45.851 Suicidal ideations (principal); F20.9 Schizophrenia, unspecified; F31.9 Bipolar disorder, unspecified; I10 Essential (primary) hypertension; F10.10 Alcohol abuse, uncomplicated; F17.200 Nicotine dependence, unspecified, uncomplicated; R45.1 Restlessness and agitation; Y90.0 Blood alcohol level of less than 20 mg/100 ml; Z98.890 Other specified postprocedural states
CPT/HCPCS: 36415; 80048; 80076; 80305; 80307; 80329; 81001; 85025; 99285; G0480; 81000-TC

== ENCOUNTER 2019-08-28 09:20 | Emergency (ER) | payer OTHER ==
[~2019-08-28] VITALS: Ht 170.2 cm; Wt 90.7 kg
--- NOTE | 2019-08-28 09:47 | NUR ---
patient came in to the er c/o feeling depressed and hearing voices, telling him to walk into oncoming traffic, wants to go vouluntary admssion at [facility]. On rooma ir, breathing evenly and unlabored, kept comfortable, will continue to monitor accordingly. Sitter at bedside for constant monitoring.
--- NOTE | 2019-08-28 09:49 | NUR ---
called security for wanding
--- NOTE | 2019-08-28 09:53 | NUR ---
security at bedside and wand the patient
[2019-08-28 09:55] LABS: BASOPHILS % (AUTO) 0.3 % (0.0-2.0); EOSINOPHILS % (AUTO) 1.2 % (0.0-6.0); HEMATOCRIT 44 % (39-51); HEMOGLOBIN 15.2 g/dL (13.5-17.5); LYMPHOCYTES # (AUTO) 2.5 /CMM (0.8-4.8); LYMPHOCYTES % (AUTO) 34.8 % (20.0-44.0); MEAN CORPUSCULAR HGB CONC 35 g/dl (31.0-36.0); MEAN CORPUSCULAR VOLUME 93 fL (80-96); MONOCYTES # (AUTO) 0.5 /CMM (0.1-1.30); MONOCYTES % (AUTO) 6.9 % (2.0-12.0); NEUTROPHILS # (AUTO) 4.1 /CMM (1.8-8.9); NEUTROPHILS % (AUTO) 56.8 % (43.0-81.0); PLATELET COUNT (AUTO) 263 /CMM (150-450); RED BLOOD CELL COUNT(AUTO) 4.77 MIL/uL (4.5-6.0); WHITE BLOOD COUNT (AUTO) 7.2 K/uL (4.3-11.0)
[2019-08-28 10:05] LABS: CALCIUM, SERUM 8.9 mg/dL (8.5-10.1); CARBON DIOXIDE 28 mmol/L (21-32); CHLORIDE 103 mmol/L (98-107); CREATININE 0.8 mg/dL (0.6-1.3); GLUCOSE 88 mg/dL (74-106); POTASSIUM 3.5 mmol/L (3.5-5.1); SODIUM SERUM 138 mmol/L (136-145); UREA NITROGEN, BLOOD 7 mg/dL (7-18)
[2019-08-28 10:10] LABS: ALANINE AMINOTRANSFERASE 73 U/L (12-78); ALBUMIN 3.9 g/dL (3.4-5.0); ALCOHOL, BLOOD < 3 mg/dL (0-0); ALKALINE PHOSPHATASE 77 U/L (46-116); ASPARTATE AMINOTRANSFERASE 47 U/L (15-37); BILIRUBIN,DIRECT 0.2 mg/dL (0.0-0.2); BILIRUBIN,TOTAL 0.7 mg/dL (0.2-1.0); TOTAL PROTEIN, SERUM 7.9 g/dL (6.4-8.2)
[2019-08-28 10:11] LABS: ACETAMINOPHEN 0 ug/ml (10-30); SALICYLATE < 0.2 mg/dL (2.8-20.0)
--- NOTE | 2019-08-28 10:27 | NUR ---
Alphonso secondary social studies teacher at bedside and talking to patient.
[2019-08-28 10:33] LABS: APPEARANCE,URINE Clear (CLEAR); BILIRUBIN,URINE Negative (NEGATIVE); BLOOD, URINE Negative Ery/uL (NEGATIVE); COLOR,URINE Yellow (YELLOW); KETONES,URINE Negative (NEGATIVE); LEUKOCYTE ESTERASE ,URINE Negative (NEGATIVE); NITRITE, URINE Negative (NEGATIVE); PROTEIN,URINE Negative (NEGATIVE); UGLUCOSE Negative (NEGATIVE); UROBILINOGEN,URINE 0.2 EU/dL (0.2)
[2019-08-28] MEDS ORDERED: LORAZEPAM 1 MG TABLET ONE ×2 (10:54→10:59)
[2019-08-28] MEDS: LORAZEPAM 1 MG TABLET PO ONE (10:58)
--- NOTE | 2019-08-28 11:17 | NUR ---
Social service consult requested by MD for voluntary psychiatric admission. Per MD notes and chart review, pt is 59-year-old male with history of schizophrenia, bipolar disorder, taking medications as prescribed, currently presented with worsening depressive symptoms, worsening voices/auditory hallucinations telling him to walk into the road. HIM SPECIALISTS met with the pt bedside. HIM SPECIALISTS introduced self and explained her role. HIM SPECIALISTS is familiar with the pt. from previous ED visit for the same complaint. Pt. is alert and oriented x 4. Pt. has pressured speech and talks fast. Pt. has insight into his speech and psychiatric condition. Pt appeared well groomed. Pt. states he is hearing voices telling him to "run into traffic." Pt has been to [facility] before and is requesting to go voluntary to [facility]. Pt's psychiatrist is Dr. Anderson and pt reports he has been seeing Dr. Anderson for the past 20 years. Pt reports to have recently graduated from the [facility] alcohol treatment program. He was there for the past 4 months. Pt. now resides at a transitional housing located at [address] [place] [address]. Pt. denies any current drug and alcohol use. Pt. receives SSI monthly. HIM SPECIALISTS contacted Bharath at [facility] for voluntary placement. Bharath informed HIM SPECIALISTS they will have a bed for the pt. at [facility]. HIM SPECIALISTS faxed clinical referral packet to [facility] intake .
--- NOTE | 2019-08-28 12:20 | NUR ---
INFORMATION SYSTEMS PROFESSOR received a call from CJ at [facility] intake requesting for UDS results. INFORMATION SYSTEMS PROFESSOR faxed UDS report to CJ. Pt also confirmed with CJ that pt is ambulatory and has a cane, if needed.
--- NOTE | 2019-08-28 14:09 | NUR ---
REFAXED INFO WITH "MEDICALLY CLEAR" BAO ON PACKET.
--- NOTE | 2019-08-28 14:11 | NUR ---
CALLED [facility] FOR TRANSFER TO [facility]. ETA [phone]
--- NOTE | 2019-08-28 14:23 | NUR ---
[facility] CALLED WITH ADMISSION INFO. DR. UPTON IS THE PSYCHIATRIST, DR NEGRON FOR MEDICAL. NURSING SUP GERRY NUMBER FOR REPORT [phone].
[2019-08-28 16:36] VITALS: BP 135/72
--- NOTE | 2019-08-28 16:37 | NUR ---
patient left via gurney accompanied by EMT in no distress, nor chest pain.
== END 2019-08-28 16:37 ==
LOC: ER 09:20
DX: R45.851 Suicidal ideations (principal); R44.0 Auditory hallucinations; F31.9 Bipolar disorder, unspecified; I10 Essential (primary) hypertension; F10.10 Alcohol abuse, uncomplicated; F17.200 Nicotine dependence, unspecified, uncomplicated; Y90.0 Blood alcohol level of less than 20 mg/100 ml; Z98.890 Other specified postprocedural states
CPT/HCPCS: 36415; 80048; 80076; 80305; 80307; 80329; 81001; 85025; 99285; G0480; 81000-TC

== ENCOUNTER 2019-10-15 14:23 | Emergency (ER) | payer OTHER ==
[~2019-10-15] VITALS: Ht 177.8 cm; Wt 105.2 kg
--- NOTE | 2019-10-15 15:00 | NUR ---
PT BIB SELF C/O SI "I WANT TO CUT MY WRIST" PT IS AAOX4, NOT IN RESPIRATORY DISTRESS, V/S STABLE, KEPT RESTED AND COMFORTABLE, WILL CONTINUE TO MONITOR.
--- NOTE | 2019-10-15 15:15 | NUR ---
JEFFERSON JOY AT BEDSIDE FOR EVAL.
--- NOTE | 2019-10-15 15:18 | NUR ---
URINE SPECIMEN COLLECTED AND SENT TO LAB.
[2019-10-15] MEDS ORDERED: LORAZEPAM 1 MG TABLET PO ONE ×2 (15:30→17:00)
[2019-10-15 15:35] LABS: APPEARANCE,URINE Clear (CLEAR); BILIRUBIN,URINE Negative (NEGATIVE); BLOOD, URINE Trace-intact Ery/uL (NEGATIVE); COLOR,URINE Yellow (YELLOW); KETONES,URINE Negative (NEGATIVE); LEUKOCYTE ESTERASE ,URINE Negative (NEGATIVE); NITRITE, URINE Negative (NEGATIVE); PH,URINE 5.5 (5.0-8.0); PROTEIN,URINE Negative (NEGATIVE); UGLUCOSE Negative (NEGATIVE); UROBILINOGEN,URINE 0.2 EU/dL (0.2)
--- NOTE | 2019-10-15 15:35 | NUR ---
ER PHLEB AT BEDSIDE FOR EVAL.
[2019-10-15] MEDS ORDERED: LORAZEPAM 1 MG TABLET ONE ×2 (15:40→16:48)
--- NOTE | 2019-10-15 15:41 | NUR ---
HEAT TREAT INSPECTOR contacted Bharath at [facility] for voluntary placement. Bharath informed HEAT TREAT INSPECTOR they will have a bed for the pt. at [facility]. HEAT TREAT INSPECTOR to fax clinical referral packet to [facility] intake once labs are available. ABBY updated RED Escoto in ED.
[2019-10-15 15:49] LABS: BASOPHILS % (AUTO) 0.4 % (0.0-2.0); EOSINOPHILS % (AUTO) 0.9 % (0.0-6.0); HEMATOCRIT 46 % (39-51); HEMOGLOBIN 15.4 g/dL (13.5-17.5); LYMPHOCYTES # (AUTO) 2.7 /CMM (0.8-4.8); LYMPHOCYTES % (AUTO) 32.8 % (20.0-44.0); MEAN CORPUSCULAR HGB CONC 34 g/dl (31.0-36.0); MEAN CORPUSCULAR VOLUME 95 fL (80-96); MONOCYTES # (AUTO) 0.5 /CMM (0.1-1.30); MONOCYTES % (AUTO) 6.2 % (2.0-12.0); NEUTROPHILS % (AUTO) 59.7 % (43.0-81.0); PLATELET COUNT (AUTO) 238 /CMM (150-450); RED BLOOD CELL COUNT(AUTO) 4.83 MIL/uL (4.5-6.0); WHITE BLOOD COUNT (AUTO) 8.3 K/uL (4.3-11.0)
[2019-10-15 15:55] LABS: CARBON DIOXIDE 29 mmol/L (21-32); CHLORIDE 103 mmol/L (98-107); CREATININE 0.9 mg/dL (0.6-1.3); GLUCOSE 119 mg/dL (74-106); POTASSIUM 3.6 mmol/L (3.5-5.1); SODIUM SERUM 139 mmol/L (136-145); UREA NITROGEN, BLOOD 10 mg/dL (7-18)
[2019-10-15 16:01] LABS: ACETAMINOPHEN 0 ug/ml (10-30); ALANINE AMINOTRANSFERASE 67 U/L (12-78); ALBUMIN 3.8 g/dL (3.4-5.0); ALCOHOL, BLOOD < 3 mg/dL (0-0); ALKALINE PHOSPHATASE 79 U/L (46-116); ASPARTATE AMINOTRANSFERASE 40 U/L (15-37); BILIRUBIN,DIRECT 0.1 mg/dL (0.0-0.2); BILIRUBIN,TOTAL 0.4 mg/dL (0.2-1.0); SALICYLATE 0.6 mg/dL (2.8-20.0); TOTAL PROTEIN, SERUM 7.6 g/dL (6.4-8.2)
--- NOTE | 2019-10-15 16:09 | NUR ---
FOOD TRAY PROVIDED.
--- NOTE | 2019-10-15 16:10 | NUR ---
LINE PREP COOK faxed clinicals including face sheet to [facility] intake and requested for them to f/u with ED.
[2019-10-15 16:14] LABS: BACTERIA,URINE None seen /HPF (None Seen); SQUAMOUS EPITHELIAL CELL,UR Few /HPF (None Seen); WBC,URINE 0-2 /HPF (0-3)
--- NOTE | 2019-10-15 17:30 | NUR ---
FOLLOWED UP WITH [facility] FOR ADMISSION. THEY ARE STILL REVIEWING THE CLINICALS. WILL CALL BACK WITH STATUS.
--- NOTE | 2019-10-15 18:56 | NUR ---
CALLED [facility]. STILL NO STATUS ON THE TRANSFER.
--- NOTE | 2019-10-15 19:11 | NUR ---
REPORT GIVEN TO RED LEDEZMA FOR JAGDISH. STILL WAITING [facility] FOR TRANSFER.
--- NOTE | 2019-10-15 21:30 | NUR ---
Patient is resting comfortably in bed with eyes closed. Easily aroused. VSS.
--- NOTE | 2019-10-15 21:46 | NUR ---
FAXED ED NOTE TO [facility]
--- NOTE | 2019-10-15 22:37 | NUR ---
TRANSFER INFO FROM [facility] [place]: PT ACCEPTED AT [facility] MD [facility] ACCEPTING rN FOR REPORT [phone]
--- NOTE | 2019-10-15 22:45 | NUR ---
CALL THE CAR- REF#[id number], ETA TO FOLLOW
--- NOTE | 2019-10-15 22:57 | NUR ---
[facility] ETA 45 - 60 MIN TRIP: [phone] C/O OLAF
[2019-10-15 23:12] VITALS: BP 137/80
--- NOTE | 2019-10-15 23:12 | NUR ---
Patient is resting comfortably in bed with eyes closed. Easily aroused. VSS
--- NOTE | 2019-10-15 23:37 | NUR ---
REPORT GIVEN TO YONG MOON FOR JAGDISH AND TRANSPORT.
== END 2019-10-16 00:10 ==
LOC: ER 14:30
DX: F29 Unspecified psychosis not due to a substance or known physiological condition (principal); I10 Essential (primary) hypertension; F31.9 Bipolar disorder, unspecified; F20.9 Schizophrenia, unspecified; Z98.890 Other specified postprocedural states
CPT/HCPCS: 36415; 80048; 80076; 80305; 80307; 80329; 81001; 85025; 99285; G0480; 81000-TC

== ENCOUNTER 2019-11-23 16:09 | Emergency (ER) | payer OTHER ==
[~2019-11-23] VITALS: Ht 175.3 cm; Wt 90.7 kg
--- NOTE | 2019-11-23 16:15 | NUR ---
PT AMBULATORY TO ER BED 14. HERE FOR SUICIDAL IDEATION W/ PLAN TO "CUT HIS WRIST OR RUN INTO TRAFFIC." PT IS COOPERATIVE TO STAFF. AAOX3 PT SEEN HERE MULTIPLE TIME FOR PSYCHIATRIC COMPLAINTS. SITTER AT BEDSIDE. AWAITING MD DNUAWAY.
--- NOTE | 2019-11-23 16:22 | NUR ---
DR YOO AT BEDSIDE FOR EVAL.
[2019-11-23] MEDS ORDERED: LORAZEPAM INJ 2 MG/ML VIAL IM ONE (17:00)
[2019-11-23] MEDS ORDERED: OLANZAPINE 10 MG VIAL IM ONE ×2 (17:00→17:01)
--- NOTE | 2019-11-23 17:00 | NUR ---
TOPPER PACKER AT BEDSIDE FOR BLOOD DRAW.
[2019-11-23] MEDS ORDERED: LORAZEPAM INJ 2 MG/ML VIAL ONE (17:02)
[2019-11-23 17:14] LABS: BASOPHILS # (AUTO) 0.1 /CMM (0.0-0.2); BASOPHILS % (AUTO) 0.5 % (0.0-2.0); EOSINOPHILS % (AUTO) 0.6 % (0.0-6.0); HEMATOCRIT 45 % (39-51); HEMOGLOBIN 15.4 g/dL (13.5-17.5); LYMPHOCYTES % (AUTO) 18.6 % (20.0-44.0); MEAN CORPUSCULAR HGB CONC 34 g/dl (31.0-36.0); MEAN CORPUSCULAR VOLUME 93 fL (80-96); MONOCYTES # (AUTO) 1.2 /CMM (0.1-1.30); MONOCYTES % (AUTO) 10.8 % (2.0-12.0); NEUTROPHILS # (AUTO) 7.6 /CMM (1.8-8.9); NEUTROPHILS % (AUTO) 69.5 % (43.0-81.0); PLATELET COUNT (AUTO) 244 /CMM (150-450); RED BLOOD CELL COUNT(AUTO) 4.85 MIL/uL (4.5-6.0); WHITE BLOOD COUNT (AUTO) 10.9 K/uL (4.3-11.0)
[2019-11-23 17:24] LABS: APPEARANCE,URINE CLEAR (CLEAR); BILIRUBIN,URINE NEGATIVE (NEGATIVE); BLOOD, URINE NEGATIVE Ery/uL (NEGATIVE); COLOR,URINE YELLOW (YELLOW); KETONES,URINE NEGATIVE (NEGATIVE); LEUKOCYTE ESTERASE ,URINE NEGATIVE (NEGATIVE); NITRITE, URINE NEGATIVE (NEGATIVE); PROTEIN,URINE NEGATIVE (NEGATIVE); UGLUCOSE NEGATIVE (NEGATIVE); UROBILINOGEN,URINE 0.2 EU/dL (0.2)
[2019-11-23 17:29] LABS: CALCIUM, SERUM 9.7 mg/dL (8.5-10.1); CARBON DIOXIDE 24 mmol/L (21-32); CHLORIDE 100 mmol/L (98-107); GLUCOSE 93 mg/dL (74-106); POTASSIUM 3.9 mmol/L (3.5-5.1); SODIUM SERUM 138 mmol/L (136-145); UREA NITROGEN, BLOOD 9 mg/dL (7-18)
[2019-11-23 17:35] LABS: ALANINE AMINOTRANSFERASE 68 U/L (12-78); ALBUMIN 4.2 g/dL (3.4-5.0); ALCOHOL, BLOOD 4 mg/dL (0-0); ALKALINE PHOSPHATASE 84 U/L (46-116); ASPARTATE AMINOTRANSFERASE 50 U/L (15-37); BILIRUBIN,DIRECT 0.2 mg/dL (0.0-0.2); BILIRUBIN,TOTAL 0.8 mg/dL (0.2-1.0); TOTAL PROTEIN, SERUM 8.7 g/dL (6.4-8.2)
[2019-11-23 17:36] LABS: ACETAMINOPHEN < 2 ug/ml (10-30); SALICYLATE 1.8 mg/dL (2.8-20.0)
--- NOTE | 2019-11-23 17:50 | NUR ---
PT SLEEPING. EASILY AROUSABLE. ON MONTIR. VSS. AWAITING MD DUNAWAY.
--- NOTE | 2019-11-23 19:13 | NUR ---
REPORT GIVEN TO RAYSHAWN MOON FOR JAGDISH.
--- NOTE | 2019-11-24 01:42 | NUR ---
PT AMBULATORY TO THE BATHROOM WITH STEADY GAIT NOTED. PT AAOX4 NO ACUTE DISTRESS NOTED, RESP EVEN AND UNLABORED. PT REMAINS CALM AND COOPERATIVE AT THIS TIME. WILL CONTINUE TO MONITOR PT CLOSELY. 1:1 SITTER REMAINS AT BEDSIDE FOR PT SAFETY.
--- NOTE | 2019-11-24 03:28 | NUR ---
PT ACCEPTED TO [facility] ACCEPTING MD: DR. ELI AND DR. MCMILLAN NUMBER FOR REPORT: [phone] EXT [phone]
--- NOTE | 2019-11-24 03:34 | NUR ---
CALLED CALL THE CAR FOR TRANSPORTATION. WILL CALL BACK WITH ETA. CONFIRMATION #[id number]
--- NOTE | 2019-11-24 03:38 | NUR ---
[facility] [id number]
--- NOTE | 2019-11-24 04:17 | NUR ---
PT REFUSING TO GO TO [facility]. STILL C/O SUICIDAL IDEATION. MD AWARE. WILL CALL TURNING SANDER TENDER FOR EVALUATION.
--- NOTE | 2019-11-24 06:30 | NUR ---
ANAYA CAZARES AT BEDSIDE FOR EVALUATION
--- NOTE | 2019-11-24 06:48 | NUR ---
CALLED CALL THE CAR FOR TRANSPORTATION. WILL CALL BACK WITH ETA. CONFIRMATION #[id number]
--- NOTE | 2019-11-24 07:17 | NUR ---
ATTEMPTED TO GIVE REPORT TO [facility] MARIA LUISA, ASK TO CALL BACK LATER
--- NOTE | 2019-11-24 08:23 | NUR ---
REPORT GIVEN TO RED ZELAYA OF [facility] FOR JAGDISH.
--- NOTE | 2019-11-24 08:25 | NUR ---
CALLED CALL THE CAR FOR ETA ON AMBULANCE. [facility] WITH 30 MINUTE ETA.
[2019-11-24 08:54] VITALS: BP 138/98
== END 2019-11-24 09:05 | disposition home or self-care (01) ==
LOC: ER 16:10
DX: F19.959 Other psychoactive substance use, unspecified with psychoactive substance-induced psychotic disorder, unspecified (principal); R45.851 Suicidal ideations; F11.10 Opioid abuse, uncomplicated; F15.10 Other stimulant abuse, uncomplicated; F14.10 Cocaine abuse, uncomplicated; F10.10 Alcohol abuse, uncomplicated; F20.9 Schizophrenia, unspecified; F31.9 Bipolar disorder, unspecified; R00.0 Tachycardia, unspecified; I10 Essential (primary) hypertension; Y90.1 Blood alcohol level of 20-39 mg/100 ml; Z98.890 Other specified postprocedural states; Z59.0 Homelessness
CPT/HCPCS: 36415; 80048; 80076; 80305; 80307; 80329; 81001; 85025; 96372 ×2; 99285; G0480; J2060; J3490; 81000-TC

== ENCOUNTER 2020-02-03 13:39 | Emergency (ER) | payer OTHER ==
[~2020-02-03] VITALS: Ht 175.3 cm; Wt 91.2 kg
--- NOTE | 2020-02-03 14:16 | NUR ---
BIBS TO ER BED 15. AAOX4. NOT IN RESP DISTRESS. AMBULATORY. CAME IN FOR SUICIDAL IDEATION WITH PLANS TO CUT HIMSELF. PER PT, HE THINKS THAT HIS MEDICATION IS NOT WORKING THUS MAKING HIM FEEL SUICIDAL. PT IS STRIPPED OF CLOTHING, VISUALLY INSPECED FOR CONTRABAND, GOWNED, BELONGINGS PLACED IN LOCKER LOCATED IN UTILITY ROOM AND 1:1 SITTER AT BEDSIDE. WAS AT BEDSIDE FOR EVAL. URINE COLLECTED FROM PT. BLOOD ALREADY DRAWN AT BEDSIDE. WILL CONTINUE TO MONITOR PT
[2020-02-03 14:18] LABS: BASOPHILS % (AUTO) 0.3 % (0.0-2.0); EOSINOPHILS % (AUTO) 1.3 % (0.0-6.0); HEMATOCRIT 43 % (39-51); HEMOGLOBIN 14.7 g/dL (13.5-17.5); LYMPHOCYTES # (AUTO) 3.3 /CMM (0.8-4.8); LYMPHOCYTES % (AUTO) 39.7 % (20.0-44.0); MEAN CORPUSCULAR HGB CONC 34 g/dl (31.0-36.0); MEAN CORPUSCULAR VOLUME 93 fL (80-96); MONOCYTES # (AUTO) 0.8 /CMM (0.1-1.30); MONOCYTES % (AUTO) 9.4 % (2.0-12.0); NEUTROPHILS # (AUTO) 4.1 /CMM (1.8-8.9); NEUTROPHILS % (AUTO) 49.3 % (43.0-81.0); PLATELET COUNT (AUTO) 269 /CMM (150-450); RED BLOOD CELL COUNT(AUTO) 4.63 MIL/uL (4.5-6.0); WHITE BLOOD COUNT (AUTO) 8.3 K/uL (4.3-11.0)
[2020-02-03 14:20] LABS: APPEARANCE,URINE Clear (CLEAR); BILIRUBIN,URINE SMALL (NEGATIVE); BLOOD, URINE Negative Ery/uL (NEGATIVE); COLOR,URINE Yellow (YELLOW); KETONES,URINE Negative (NEGATIVE); LEUKOCYTE ESTERASE ,URINE Negative (NEGATIVE); NITRITE, URINE Negative (NEGATIVE); PROTEIN,URINE 30 mg/dl (NEGATIVE); UGLUCOSE Negative (NEGATIVE)
[2020-02-03 14:23] LABS: CALCIUM, SERUM 9.1 mg/dL (8.5-10.1); CARBON DIOXIDE 28 mmol/L (21-32); CHLORIDE 103 mmol/L (98-107); CREATININE 0.8 mg/dL (0.6-1.3); GLUCOSE 92 mg/dL (74-106); POTASSIUM 3.6 mmol/L (3.5-5.1); SODIUM SERUM 139 mmol/L (136-145); UREA NITROGEN, BLOOD 10 mg/dL (7-18)
--- NOTE | 2020-02-03 14:23 | NUR ---
PT PROVIDED WITH MEAL
[2020-02-03 14:29] LABS: ACETAMINOPHEN < 2 ug/ml (10-30); ALANINE AMINOTRANSFERASE 103 U/L (12-78); ALCOHOL, BLOOD < 3 mg/dL (0-0); ALKALINE PHOSPHATASE 68 U/L (46-116); ASPARTATE AMINOTRANSFERASE 78 U/L (15-37); BILIRUBIN,DIRECT 0.2 mg/dL (0.0-0.2); BILIRUBIN,TOTAL 0.8 mg/dL (0.2-1.0); SALICYLATE < 2.8 mg/dL (2.8-20.0)
[2020-02-03 14:31] LABS: BACTERIA,URINE Few /HPF (None Seen); HYALINE CASTS, URINE Few /LPF (None Seen); MUCUS,URINE Many /LPF (None Seen); RBC,URINE 0-2 /HPF (0-2); SQUAMOUS EPITHELIAL CELL,UR Few /HPF (None Seen); WBC,URINE 0-2 /HPF (0-3)
--- NOTE | 2020-02-03 15:30 | NUR ---
ABBY CONSULT: Sugar Cane Farm Manager conducted a social media developer consult to address pt's suicidal ideation. ABBY met with pt at bedside. Pt was pleasant, although altered. Pt reported he is currently "motel hopping" with his girlfriend and is intermittently homeless. Pt reported he receives SSI at approximately $900/month, which he uses to pay for motels and buy food. Pt reported he plans to receive a Section 8 voucher in approximately 2 months, and is linked to resources thorough [facility] in the [facility] area, a clinic named "[facility] Pt reported he was diagnosed with Schizophrenia and Bipolar Depression. Pt denied any use of drugs stating, "I got no crack in me!" Pt reported he drinks alcohol, last time being 3-4 days ago. Pt reported he received treatment for alcohol use in the past, and declined any services at the moment. ABBY provided the pt with [facility] Interim Housing List for housing resources in [facility], upon the pt's request. Pt declined any other resources. Pt signed Homeless Patient Waiver; SW filled the document in his chart. Pt reported he is currently experiencing suicidal ideation and plans to cut his wrists. Pt denied homicidal ideation. Pt reported a history of psychiatric hospitalizations at [facility]. Pt requested voluntary inpatient psychiatric placement at [facility]. Clinicals faxed to [facility] Intake ([phone]) at 1600. ABBY contacted [facility] intake staff, Bharath regarding the referral. Aforementioned information endorsed to ER spice miller hammer mill, Kana.
--- NOTE | 2020-02-03 16:33 | NUR ---
pt in bed resting comfortably. nad noted
--- NOTE | 2020-02-03 17:20 | NUR ---
pt accepted at [facility] under the care of Dr. Anderson and Dr. Castro. Call [phone] unit #2 for report. Room assignment uon reporting.
--- NOTE | 2020-02-03 17:32 | NUR ---
report given to jennifer Butts for igor at the [facility]
--- NOTE | 2020-02-03 17:45 | NUR ---
CALLED [id number] [phone] ETA IS 45 MINS [facility] RESERVATION IS [id number] TAMIKO.
[2020-02-03 18:17] VITALS: BP 125/75
--- NOTE | 2020-02-03 19:00 | NUR ---
pt left on [facility] w/ 2 ambulance staff at bedside. pt's belongings released to ambulance staff. report given. pt is in stable condition for transport.
== END 2020-02-03 19:01 ==
LOC: ER 13:47
DX: R45.851 Suicidal ideations (principal); F41.9 Anxiety disorder, unspecified; F20.9 Schizophrenia, unspecified; F31.9 Bipolar disorder, unspecified; I10 Essential (primary) hypertension; Z98.890 Other specified postprocedural states; Z59.0 Homelessness
CPT/HCPCS: 36415; 80048; 80076; 80305; 80307; 80329; 81001; 85025; 99285; G0480; 81000-TC

== ENCOUNTER 2020-02-29 09:22 | Emergency (ER) | payer OTHER ==
[~2020-02-29] VITALS: Ht 167.6 cm; Wt 102.1 kg
--- NOTE | 2020-02-29 09:22 | NUR ---
PT BIB SELF C/O SI "I WANT TO RUN THRU TRAFFIC" PT IS AAOX4, NOT IN RESPIRATORY DISTRESS, V/S STABLE, KEPT RESTED AND COMFORTABLE. WILL CONTINUE TO MONITOR.
--- NOTE | 2020-02-29 09:28 | NUR ---
URINE SPECIMEN COLLECTED AND SENT TO LAB.
--- NOTE | 2020-02-29 09:32 | NUR ---
SEEN AND EXAMINED BY .
--- NOTE | 2020-02-29 09:35 | NUR ---
SECURITY AT BEDSIDE FOR WANDING.
[2020-02-29 09:59] LABS: APPEARANCE,URINE Clear (CLEAR); BILIRUBIN,URINE Negative (NEGATIVE); BLOOD, URINE Negative Ery/uL (NEGATIVE); COLOR,URINE Dark (YELLOW); KETONES,URINE Negative (NEGATIVE); LEUKOCYTE ESTERASE ,URINE Negative (NEGATIVE); NITRITE, URINE Negative (NEGATIVE); PH,URINE 5.5 (5.0-8.0); PROTEIN,URINE Negative (NEGATIVE); UGLUCOSE Negative (NEGATIVE); UROBILINOGEN,URINE 0.2 EU/dL (0.2)
[2020-02-29 10:05] LABS: BASOPHILS % (AUTO) 0.3 % (0.0-2.0); EOSINOPHILS % (AUTO) 1.5 % (0.0-6.0); HEMATOCRIT 48 % (39-51); HEMOGLOBIN 16.1 g/dL (13.5-17.5); LYMPHOCYTES # (AUTO) 2.9 /CMM (0.8-4.8); MEAN CORPUSCULAR HGB CONC 34 g/dl (31.0-36.0); MEAN CORPUSCULAR VOLUME 94 fL (80-96); MONOCYTES # (AUTO) 1.1 /CMM (0.1-1.30); NEUTROPHILS # (AUTO) 5.5 /CMM (1.8-8.9); NEUTROPHILS % (AUTO) 57.2 % (43.0-81.0); PLATELET COUNT (AUTO) 216 /CMM (150-450); RED BLOOD CELL COUNT(AUTO) 5.06 MIL/uL (4.5-6.0); WHITE BLOOD COUNT (AUTO) 9.6 K/uL (4.3-11.0)
[2020-02-29 10:14] LABS: CALCIUM, SERUM 9.5 mg/dL (8.5-10.1); CARBON DIOXIDE 25 mmol/L (21-32); CHLORIDE 103 mmol/L (98-107); CREATININE 0.9 mg/dL (0.6-1.3); GLUCOSE 135 mg/dL (74-106); POTASSIUM 3.6 mmol/L (3.5-5.1); SODIUM SERUM 137 mmol/L (136-145); UREA NITROGEN, BLOOD 16 mg/dL (7-18)
[2020-02-29 10:20] LABS: ALANINE AMINOTRANSFERASE 73 U/L (12-78); ALBUMIN 3.9 g/dL (3.4-5.0); ALKALINE PHOSPHATASE 89 U/L (46-116); ASPARTATE AMINOTRANSFERASE 41 U/L (15-37); BILIRUBIN,DIRECT 0.2 mg/dL (0.0-0.2); BILIRUBIN,TOTAL 0.6 mg/dL (0.2-1.0); TOTAL PROTEIN, SERUM 8.2 g/dL (6.4-8.2)
[2020-02-29 10:21] LABS: ACETAMINOPHEN < 2 ug/ml (10-30); ALCOHOL, BLOOD < 3 mg/dL (0-0); SALICYLATE 0.3 mg/dL (2.8-20.0)
--- NOTE | 2020-02-29 11:33 | NUR ---
report given to mitchell taylor at [facility]. awaiting transport.
--- NOTE | 2020-02-29 11:38 | NUR ---
CALLED [id number], WILL CALL US BACK REF# [id number].
--- NOTE | 2020-02-29 11:47 | NUR ---
[id number] CALLED BACK. [facility]SP[facility] WILL BE HERE IN 30-40MINS PER
[2020-02-29 12:19] VITALS: BP 134/82
== END 2020-02-29 12:20 ==
LOC: ER 09:23
DX: R45.851 Suicidal ideations (principal); F14.90 Cocaine use, unspecified, uncomplicated; I10 Essential (primary) hypertension; F20.9 Schizophrenia, unspecified; F32.9 Major depressive disorder, single episode, unspecified; F17.200 Nicotine dependence, unspecified, uncomplicated; Z98.890 Other specified postprocedural states; Z59.0 Homelessness
CPT/HCPCS: 36415; 80048; 80076; 80305; 80307; 80329; 81001; 85025; 99285; G0480; 81000-TC

== ENCOUNTER 2020-05-07 14:56 | Emergency (ER) | payer OTHER ==
[~2020-05-07] VITALS: Ht 167.6 cm; Wt 102.5 kg
[2020-05-07] MEDS ORDERED: OLANZAPINE 10 MG VIAL IM ONE ×2 (16:00→17:16)
[2020-05-07 16:10] LABS: BASOPHILS % (AUTO) 0.4 % (0.0-2.0); EOSINOPHILS % (AUTO) 1.4 % (0.0-6.0); HEMATOCRIT 51 % (39-51); LYMPHOCYTES # (AUTO) 3.3 /CMM (0.8-4.8); LYMPHOCYTES % (AUTO) 31.5 % (20.0-44.0); MEAN CORPUSCULAR HGB CONC 34 g/dl (31.0-36.0); MEAN CORPUSCULAR VOLUME 94 fL (80-96); MONOCYTES # (AUTO) 1.1 /CMM (0.1-1.30); MONOCYTES % (AUTO) 10.3 % (2.0-12.0); NEUTROPHILS # (AUTO) 5.9 /CMM (1.8-8.9); NEUTROPHILS % (AUTO) 56.4 % (43.0-81.0); PLATELET COUNT (AUTO) 269 /CMM (150-450); RED BLOOD CELL COUNT(AUTO) 5.35 MIL/uL (4.5-6.0); WHITE BLOOD COUNT (AUTO) 10.4 K/uL (4.3-11.0)
[2020-05-07 16:15] LABS: CALCIUM, SERUM 9.3 mg/dL (8.5-10.1); CARBON DIOXIDE 26 mmol/L (21-32); CHLORIDE 96 mmol/L (98-107); CREATININE 0.9 mg/dL (0.6-1.3); GLUCOSE 84 mg/dL (74-106); POTASSIUM 3.9 mmol/L (3.5-5.1); SODIUM SERUM 133 mmol/L (136-145); UREA NITROGEN, BLOOD 11 mg/dL (7-18)
[2020-05-07 16:42] LABS: BILIRUBIN,DIRECT 0.2 mg/dL (0.0-0.2); BILIRUBIN,TOTAL 0.9 mg/dL (0.2-1.0)
[2020-05-07 16:43] LABS: ACETAMINOPHEN < 2 ug/ml (10-30); ALANINE AMINOTRANSFERASE 111 U/L (12-78); ALCOHOL, BLOOD < 3 mg/dL (0-0); ALKALINE PHOSPHATASE 84 U/L (46-116); ASPARTATE AMINOTRANSFERASE 78 U/L (15-37); SALICYLATE < 2.8 mg/dL (2.8-20.0); TOTAL PROTEIN, SERUM 8.5 g/dL (6.4-8.2)
--- NOTE | 2020-05-07 17:30 | NUR ---
"Hearing voices telling me to walk into traffic". PT AAOX3, VSS. RR EVEN & UNLABORED. DENIES CP, SOB, DIZZINESS, N/V AT THIS TIME. PT SEEN & EVAL'D BY DR. ANGEL. PT CALM & COOPERATIVE, NAD NOTED AT THIS TIME. MEDICATED PER ERMD ORDER, PT SUPRIYA WELL. WILL CONT TO MONITOR. JACK @ BS.
--- NOTE | 2020-05-07 17:37 | NUR ---
CALLED [facility]. ACCORDING TO MARYAM, THEY DO HAVE BEDS AVAILABLE. PER MARYAM MAKE SURE WE HAVE MEDICAL CLEARANCE FAXED WHEN AVAILABLE.
[2020-05-07 17:42] LABS: APPEARANCE,URINE Clear (CLEAR); BILIRUBIN,URINE Negative (NEGATIVE); BLOOD, URINE Negative Ery/uL (NEGATIVE); COLOR,URINE Yellow (YELLOW); KETONES,URINE Negative (NEGATIVE); LEUKOCYTE ESTERASE ,URINE Negative (NEGATIVE); NITRITE, URINE Negative (NEGATIVE); PROTEIN,URINE Negative (NEGATIVE); UGLUCOSE Negative (NEGATIVE); UROBILINOGEN,URINE 0.2 EU/dL (0.2)
--- NOTE | 2020-05-07 20:40 | NUR ---
COVID SWAB COLLECTED AND SENT TO LAB
--- NOTE | 2020-05-07 22:06 | NUR ---
LAB CALLED REGARDING NEGATIVE COVID RESULT.
[2020-05-07 23:00] VITALS: BP 139/61
--- NOTE | 2020-05-07 23:23 | NUR ---
TRANSFER INFO: PT ACCEPTED BY DR UPTON TO [facility], UNIT 1, RN FOR REPORT [phone]
--- NOTE | 2020-05-07 23:31 | NUR ---
CALLED CALL THE CAR FOR TRANSPORTATION. [facility] ETA 90 MINUTES
--- NOTE | 2020-05-07 23:33 | NUR ---
REPORT GIVEN TO RED OTOOLE FOR JAGDISH [facility]
--- NOTE | 2020-05-08 00:48 | NUR ---
REPORT GIVEN TO EMS, PT STABLE FOR TRANSFER
== END 2020-05-08 00:49 ==
LOC: ER 15:00
DX: R45.851 Suicidal ideations (principal); F31.9 Bipolar disorder, unspecified; F20.9 Schizophrenia, unspecified; Z59.0 Homelessness; I10 Essential (primary) hypertension; F19.10 Other psychoactive substance abuse, uncomplicated; Z20.828 Contact with and (suspected) exposure to other viral communicable diseases
CPT/HCPCS: 36415; 80048; 80076; 80299; 80307 ×2; 80320; 81001; 85025; 87426; 96372; 99285; C9803; J3490; 81000-TC; G0480

== ENCOUNTER 2020-06-23 12:43 | Emergency (ER) | payer OTHER ==
[~2020-06-23] VITALS: Ht 167.6 cm; Wt 90.7 kg
--- NOTE | 2020-06-23 12:55 | NUR ---
pt self presents to ed. ambulatory to er bed 15 c/o hearing voices and suicidal w/ plan to run to traffic. pt is verbally responsive. aaox4. seen in ed multiple time for same complaint. stable vitals. awaiting md akins.
--- NOTE | 2020-06-23 12:59 | NUR ---
dr chou at bedside for eval.
--- NOTE | 2020-06-23 13:08 | NUR ---
covid swab collected sent to lab
[2020-06-23 13:32] LABS: BASOPHILS % (AUTO) 0.5 % (0.0-2.0); EOSINOPHILS % (AUTO) 2.1 % (0.0-6.0); HEMATOCRIT 44 % (39-51); HEMOGLOBIN 14.9 g/dL (13.5-17.5); LYMPHOCYTES # (AUTO) 3.8 /CMM (0.8-4.8); LYMPHOCYTES % (AUTO) 42.2 % (20.0-44.0); MEAN CORPUSCULAR HGB CONC 34 g/dl (31.0-36.0); MEAN CORPUSCULAR VOLUME 93 fL (80-96); MONOCYTES # (AUTO) 0.8 /CMM (0.1-1.30); MONOCYTES % (AUTO) 9.1 % (2.0-12.0); NEUTROPHILS # (AUTO) 4.2 /CMM (1.8-8.9); NEUTROPHILS % (AUTO) 46.1 % (43.0-81.0); PLATELET COUNT (AUTO) 268 /CMM (150-450); RED BLOOD CELL COUNT(AUTO) 4.77 MIL/uL (4.5-6.0); WHITE BLOOD COUNT (AUTO) 9.1 K/uL (4.3-11.0)
[2020-06-23 13:54] LABS: ALANINE AMINOTRANSFERASE 75 U/L (12-78); ALBUMIN 3.9 g/dL (3.4-5.0); ALCOHOL, BLOOD < 3 mg/dL (0-0); ALKALINE PHOSPHATASE 82 U/L (46-116); ASPARTATE AMINOTRANSFERASE 67 U/L (15-37); BILIRUBIN,DIRECT 0.1 mg/dL (0.0-0.2); BILIRUBIN,TOTAL 0.5 mg/dL (0.2-1.0); CARBON DIOXIDE 23 mmol/L (21-32); CHLORIDE 104 mmol/L (98-107); CREATININE 0.7 mg/dL (0.6-1.3); GLUCOSE 99 mg/dL (74-106); POTASSIUM 3.8 mmol/L (3.5-5.1); SODIUM SERUM 137 mmol/L (136-145); UREA NITROGEN, BLOOD 9 mg/dL (7-18)
[2020-06-23 13:55] LABS: ACETAMINOPHEN 0 ug/ml (10-30)
[2020-06-23] MEDS ORDERED: LORAZEPAM INJ 2 MG/ML VIAL IM ONE (15:00)
[2020-06-23] MEDS ORDERED: LORAZEPAM 1 MG TABLET ONE (15:02)
[2020-06-23] MEDS ORDERED: LORAZEPAM INJ 2 MG/ML VIAL ONE (15:06)
--- NOTE | 2020-06-23 15:09 | NUR ---
pt anxious, ermd aware. medicated as ordered.
--- NOTE | 2020-06-23 16:50 | NUR ---
Stamping Machine Operator consult requested by ED RN Leana as patient presents to [facility] ED with suicidal ideation. Patient is a 60-year-old male. Patient was asleep when this SW approached, patient was easily arousable by SW calling out patients name. Once awake, patient remained lying in bed and made some direct eye-contact with this SW during this assessment. Patient reports that he has been homeless for several years however patient reports he is in a program called [employer] which has helped him secure permanent housing. Patient reports that he will be moving into his new apartment within the next month. Patient reports that he has been diagnosed with schizophrenia, Bipolar, and Depression. Patient cannot report approximate date of diagnosis. Patient reports that he has previously been to [facility] for voluntary psychiatric treatment. Patient reports current suicidal ideation but does not report a plan, stating that he is hearing voices that are telling him to run in front of traffic. Patient also reports visual hallucination earlier today, stating to hurt himself. Patient denies homicidal ideation. Patient and social worker palliative care discussed voluntary hospitalization. Patient is in agreement of voluntary hospitalization at [facility]. Plan: SW to contact Bharath at [facility] regarding this referral. and SW will fax clinicals to [phone].
--- NOTE | 2020-06-23 16:55 | NUR ---
Patient signed homeless patient waiver form. SW placed copy in the chart and informed ED RN Kana regarding signed waiver. Patient declined homeless resources.
--- NOTE | 2020-06-23 19:04 | NUR ---
FAXED LAB TO [facility]
--- NOTE | 2020-06-23 21:29 | NUR ---
TRANSFER INFO: PT GOING TO [facility], ACCEPTED BY DR UPTON, UNIT 2, RN FOR REPORT [phone]
--- NOTE | 2020-06-23 21:30 | NUR ---
CALLED [id number] RES#[id number] ETA TO FOLLOW
--- NOTE | 2020-06-23 21:54 | NUR ---
[facility] E[facility] [phone]
--- NOTE | 2020-06-23 22:44 | NUR ---
REPORT GIVEN [facility]. AND TRANFERRING RESPONSIBILITIES.
--- NOTE | 2020-06-23 22:49 | NUR ---
REPORT GIVEN TO FRANCISCO MOON AT [facility].
[2020-06-23 22:50] VITALS: BP 133/76
== END 2020-06-23 22:50 ==
LOC: ER 12:46
DX: R45.851 Suicidal ideations (principal); F29 Unspecified psychosis not due to a substance or known physiological condition; Z59.0 Homelessness; I10 Essential (primary) hypertension; F20.9 Schizophrenia, unspecified; Z20.828 Contact with and (suspected) exposure to other viral communicable diseases; F19.10 Other psychoactive substance abuse, uncomplicated; F17.200 Nicotine dependence, unspecified, uncomplicated
CPT/HCPCS: 36415; 80048; 80076; 80299; 80307; 80320; 85025; 87426; 96372; 99285; C9803; J2060; G0480

== ENCOUNTER 2020-07-24 12:36 | Emergency (ER) | payer OTHER ==
[~2020-07-24] VITALS: Ht 172.7 cm; Wt 90.7 kg
--- NOTE | 2020-07-24 13:03 | NUR ---
SELF PRESENTS TO ED. C/O HALLUCINATIONS, SI W/ PLAN TO WALK TO TRAFFIC. PT DENIES DRUG USE BUT ADMIT TO SOME ETOH. PT SEEN IN ED MULTIPLE TIMES FOR SAME REASON. STABLE VITALS. NAD NOTED. AWAITING MD DUNAWAY.
[2020-07-24] MEDS: OLANZAPINE 5 MG TABLET PO ONE ×2 (13:28→13:44)
[2020-07-24] MEDS ORDERED: OLANZAPINE 5 MG TABLET ONE (13:28)
[2020-07-24 13:30] LABS: BASOPHILS % (AUTO) 0.5 % (0.0-2.0); EOSINOPHILS % (AUTO) 1.9 % (0.0-6.0); HEMATOCRIT 49 % (39-51); HEMOGLOBIN 16.3 g/dL (13.5-17.5); LYMPHOCYTES # (AUTO) 2.4 /CMM (0.8-4.8); LYMPHOCYTES % (AUTO) 30.9 % (20.0-44.0); MEAN CORPUSCULAR HGB CONC 33 g/dl (31.0-36.0); MEAN CORPUSCULAR VOLUME 95 fL (80-96); MONOCYTES # (AUTO) 0.7 /CMM (0.1-1.30); MONOCYTES % (AUTO) 9.4 % (2.0-12.0); NEUTROPHILS # (AUTO) 4.4 /CMM (1.8-8.9); NEUTROPHILS % (AUTO) 57.3 % (43.0-81.0); PLATELET COUNT (AUTO) 219 /CMM (150-450); RED BLOOD CELL COUNT(AUTO) 5.16 MIL/uL (4.5-6.0); WHITE BLOOD COUNT (AUTO) 7.7 K/uL (4.3-11.0)
--- NOTE | 2020-07-24 13:30 | NUR ---
CALLED FOR LUNCH TRAY
[2020-07-24 13:40] LABS: CALCIUM, SERUM 9.3 mg/dL (8.5-10.1); CREATININE 0.9 mg/dL (0.6-1.3); POTASSIUM 3.9 mmol/L (3.5-5.1)
--- NOTE | 2020-07-24 13:44 | NUR ---
PT REFUSING ORDERED ZYPREXIA. REQUESTING [facility] IM INSTEAD.
[2020-07-24 13:47] LABS: ALBUMIN 3.8 g/dL (3.4-5.0); BILIRUBIN,DIRECT 0.2 mg/dL (0.0-0.2); BILIRUBIN,TOTAL 0.6 mg/dL (0.2-1.0); TOTAL PROTEIN, SERUM 8.3 g/dL (6.4-8.2)
--- NOTE | 2020-07-24 14:37 | NUR ---
LAB CALLED PT COVID RESULT NEGATIVE (-)
--- NOTE | 2020-07-24 15:18 | NUR ---
FACE SHEET AND CLINICALS FAXED TO [facility] [phone]
[2020-07-24 17:20] LABS: BILIRUBIN,URINE SMALL (NEGATIVE); COLOR,URINE YELLOW (YELLOW); LEUKOCYTE ESTERASE ,URINE Negative (NEGATIVE); NITRITE, URINE Negative (NEGATIVE); PH,URINE 5.5 (5.0-8.0); PROTEIN,URINE Negative (NEGATIVE); UGLUCOSE Negative (NEGATIVE)
[2020-07-24 17:36] LABS: BACTERIA,URINE Rare /HPF (None Seen); MUCUS,URINE Rare /LPF (None Seen); RBC,URINE 0-2 /HPF (0-2); SQUAMOUS EPITHELIAL CELL,UR 0-2 /HPF (None Seen); WBC,URINE 0-2 /HPF (0-3)
[2020-07-24 18:33] VITALS: BP 150/85
--- NOTE | 2020-07-24 18:34 | NUR ---
PT QUIET AND RESTING IN CHAIRS
--- NOTE | 2020-07-24 18:42 | NUR ---
ART CALLED FROM [facility] PT ACCEPTED BY DR. ARGUETA [phone] FOR REPORT.
--- NOTE | 2020-07-24 18:55 | NUR ---
CALLED [facility] ETA IS 40 MINS.
[2020-07-24] MEDS ORDERED: diphenhydrAMINE HCL 25 MG CAPSULE ONE (19:20)
--- NOTE | 2020-07-24 19:29 | NUR ---
REPORT GIVEN TO ANG. AWAITING TRANSPORT.
[2020-07-24] MEDS ORDERED: diphenhydrAMINE HCL 25 MG CAPSULE PO ONE (19:30)
--- NOTE | 2020-07-24 19:44 | NUR ---
REPORT GIVEN TO TRANSPORT TEAM FOR [facility]. AND TRANSFERRING RESPONSIBILITIES.
== END 2020-07-24 19:52 ==
LOC: ER 12:39
DX: R45.851 Suicidal ideations (principal); F31.9 Bipolar disorder, unspecified; F20.9 Schizophrenia, unspecified; Z59.0 Homelessness; Z20.828 Contact with and (suspected) exposure to other viral communicable diseases
CPT/HCPCS: 36415; 80048; 80076; 80299; 80307; 80320; 81001; 85025; 87426; 99285; C9803; Q0163; G0480

== ENCOUNTER 2020-08-26 12:22 | Emergency (ER) | payer OTHER ==
[~2020-08-26] VITALS: Ht 172.7 cm; Wt 90.7 kg
--- NOTE | 2020-08-26 13:00 | NUR ---
BIBS TO ER BED 15. AAOX4. NOT IN RESP DISTRESS. AMBULATORY. CAME IN FOR SUICIDAL IDEATION W/ PLAN TO CUT HIS WRIST. PT IS SEEKING VOLUNTARY ADMISSION. PT DENIES HOMICIDAL IDEATION. DENIES BOTH AUDITORY AND VISUAL HALLUCINATIONS. PT'S BELONGINGS PLACED IN LOCKER LOCATED IN UTILITY ROOM, VISUALLY INSPECTED FOR CONTRABAND. SITTER AT BEDSIDE. MD WAS AT THE BEDSIDE FOR EVAL. ORDERS RCEIVED, NOTED AND CARRIED OUT.
[2020-08-26 13:18] LABS: BASOPHILS % (AUTO) 0.3 % (0.0-2.0); EOSINOPHILS % (AUTO) 1.3 % (0.0-6.0); HEMATOCRIT 46 % (39-51); HEMOGLOBIN 15.2 g/dL (13.5-17.5); LYMPHOCYTES # (AUTO) 2.5 /CMM (0.8-4.8); LYMPHOCYTES % (AUTO) 35.3 % (20.0-44.0); MEAN CORPUSCULAR HGB CONC 33 g/dl (31.0-36.0); MEAN CORPUSCULAR VOLUME 97 fL (80-96); MONOCYTES # (AUTO) 0.6 /CMM (0.1-1.30); MONOCYTES % (AUTO) 8.4 % (2.0-12.0); NEUTROPHILS # (AUTO) 3.9 /CMM (1.8-8.9); NEUTROPHILS % (AUTO) 54.7 % (43.0-81.0); PLATELET COUNT (AUTO) 222 /CMM (150-450); RED BLOOD CELL COUNT(AUTO) 4.74 MIL/uL (4.5-6.0); WHITE BLOOD COUNT (AUTO) 7.2 K/uL (4.3-11.0)
[2020-08-26 13:20] LABS: BILIRUBIN,URINE Negative (NEGATIVE); COLOR,URINE YELLOW (YELLOW); LEUKOCYTE ESTERASE ,URINE Negative (NEGATIVE); NITRITE, URINE Negative (NEGATIVE); PROTEIN,URINE Negative (NEGATIVE); UGLUCOSE Negative (NEGATIVE); UROBILINOGEN,URINE 0.2 EU/dL (0.2)
[2020-08-26 13:38] LABS: ALANINE AMINOTRANSFERASE 56 U/L (12-78); ALCOHOL, BLOOD < 3 mg/dL (0-0); ALKALINE PHOSPHATASE 78 U/L (46-116); ASPARTATE AMINOTRANSFERASE 37 U/L (15-37); BILIRUBIN,DIRECT 0.1 mg/dL (0.0-0.2); BILIRUBIN,TOTAL 0.3 mg/dL (0.2-1.0); CARBON DIOXIDE 33 mmol/L (21-32); CHLORIDE 102 mmol/L (98-107); GLUCOSE 117 mg/dL (74-106); SODIUM SERUM 137 mmol/L (136-145); TOTAL PROTEIN, SERUM 8.2 g/dL (6.4-8.2); UREA NITROGEN, BLOOD 10 mg/dL (7-18)
[2020-08-26 13:41] LABS: ACETAMINOPHEN 0 ug/ml (10-30)
[2020-08-26] MEDS ORDERED: LORAZEPAM INJ 2 MG/ML VIAL ONE (13:54)
[2020-08-26] MEDS ORDERED: LORAZEPAM INJ 2 MG/ML VIAL IM ONE (14:00)
--- NOTE | 2020-08-26 14:05 | NUR ---
Director Of Event Management consult requested by ED RN Leana as patient presents to [facility] ED with suicidal ideation. Patient is a 60-year-old male. Patient is known to this SW from previous ED visits for similar complaints. SW met with the patient in the triage room following patient's encounter with ED physician Dr. Fierro. Patient was agitated, speaking very fast, while making appropriate eye contact. Patient reports that he has been homeless for several years however patient reports that he receives social security approximately $1,000 a month and is currently enrolled in Adult Full Service Partnership Program (AFSP). Patient reports that he was on the phone with his child welfare caseworker who suggested he present himself to an Emergency room to seek assistance for his suicidal ideations. Patient reports that he has been diagnosed with schizophrenia, Bipolar, and Depression. Patient cannot report approximate date of diagnosis. Patient reports that he has previously been to [facility] for voluntary psychiatric treatment and would like to be referred back to them. Patient reports current suicidal ideation but does not report a plan, stating that he is hearing voices that are telling him to run in front of traffic. Patient denies visual hallucinations. Patient denies homicidal ideation. Patient and delinquency prevention social worker discussed voluntary hospitalization. Patient is in agreement of voluntary hospitalization at [facility]. Patient had proper clothing for this weather. Patient was well-groomed. Patient uses a walker for assistance walking as patient reported an accident to his left leg several years ago. Plan: SW to contact Bharath at [facility] regarding this referral and SW will fax clinicals to [phone]. SW to return to have patient complete homeless patient waiver form. ABBY remains available for all needs regarding this patient.
--- NOTE | 2020-08-26 15:07 | NUR ---
ABBY faxed clinicals to [facility] [phone]. Plan: ABBY to follow-up with [facility] [phone] if no update on referral is given. ABBY remains available for all needs regarding this patient.
--- NOTE | 2020-08-26 16:23 | NUR ---
[phone] [facility] FOR COVID RESULT. FAX RESULT TO [phone]
--- NOTE | 2020-08-26 16:25 | NUR ---
COVID SWAB DONE AND SENT TO LAB
--- NOTE | 2020-08-26 17:03 | NUR ---
LAB CALLED WITH RESULT OF PT COVID-19 NEGATIVE (-)
--- NOTE | 2020-08-26 17:12 | NUR ---
COVID RESULT FAXED TO INTAKE
--- NOTE | 2020-08-26 17:51 | NUR ---
pt accepted to [facility] under dr. chin please call [phone] unit 1 for report.
--- NOTE | 2020-08-26 18:04 | NUR ---
report given to jennifer gandhi for igor at the [facility]
--- NOTE | 2020-08-26 18:06 | NUR ---
CALLED TRANSPORT ETA IS 90-120 MINS. [facility]
[2020-08-26] MEDS ORDERED: LORAZEPAM 1 MG TABLET ONE (18:42)
--- NOTE | 2020-08-26 18:45 | NUR ---
[facility] #[phone] AT BEDSIDE FOR PT TRANSPORT TO [facility]. REPORT GIVEN TO SERAFIN NORTON.
[2020-08-26 18:46] VITALS: BP 135/90
--- NOTE | 2020-08-26 18:58 | NUR ---
PT LEFT ON GURNEY WITH 2 AMBULANCE STAFF. PT IS IN STABLE CONDITION FOR TRANSPORT
--- NOTE | 2020-08-26 18:59 | NUR ---
ALL BELONGINGS GIVEN TO PATIENT.
[2020-08-26] MEDS ORDERED: LORAZEPAM 1 MG TABLET PO ONE (19:00)
== END 2020-08-26 19:00 ==
LOC: ER 12:27
DX: F20.9 Schizophrenia, unspecified (principal); R45.851 Suicidal ideations; F31.9 Bipolar disorder, unspecified; I10 Essential (primary) hypertension; Z59.0 Homelessness; Z20.822 Contact with and (suspected) exposure to COVID-19
CPT/HCPCS: 36415; 80048; 80076; 80299; 80307; 80320; 81003; 85025; 87426; 96372; 99285; C9803; J2060; G0480

== ENCOUNTER 2020-12-19 13:28 | Emergency (ER) | payer OTHER ==
[~2020-12-19] VITALS: Ht 170.2 cm; Wt 81.6 kg
--- NOTE | 2020-12-19 13:28 | NUR ---
PT BIB SELF C/O SI "I WANT TO RUN THRU TRAFFIC" PT IS AAOX4, NOT IN RESPIRATORY DISTRESS, V/S STABLE, KEPT RESTED AND COMFORTABLE. WILL CONTINUE TO MONITOR.
--- NOTE | 2020-12-19 14:19 | NUR ---
PT SEEN AND EXAMINED BY .
--- NOTE | 2020-12-19 14:30 | NUR ---
ER PHLEB AT BEDSIDE FOR BLOOD DRAW.
[2020-12-19 14:39] LABS: BASOPHILS % (AUTO) 0.3 % (0.0-2.0); EOSINOPHILS % (AUTO) 0.9 % (0.0-6.0); HEMATOCRIT 46 % (39-51); HEMOGLOBIN 15.5 g/dL (13.5-17.5); LYMPHOCYTES # (AUTO) 3.3 /CMM (0.8-4.8); LYMPHOCYTES % (AUTO) 35.4 % (20.0-44.0); MEAN CORPUSCULAR HGB CONC 34 g/dl (31.0-36.0); MEAN CORPUSCULAR VOLUME 95 fL (80-96); MONOCYTES # (AUTO) 0.7 /CMM (0.1-1.30); MONOCYTES % (AUTO) 7.4 % (2.0-12.0); NEUTROPHILS # (AUTO) 5.2 /CMM (1.8-8.9); PLATELET COUNT (AUTO) 272 /CMM (150-450); WHITE BLOOD COUNT (AUTO) 9.2 K/uL (4.3-11.0)
[2020-12-19 14:49] LABS: CALCIUM, SERUM 9.2 mg/dL (8.5-10.1); CARBON DIOXIDE 28 mmol/L (21-32); CHLORIDE 102 mmol/L (98-107); CREATININE 0.9 mg/dL (0.6-1.3); GLUCOSE 103 mg/dL (74-106); SODIUM SERUM 138 mmol/L (136-145); UREA NITROGEN, BLOOD 10 mg/dL (7-18)
[2020-12-19 14:55] LABS: ACETAMINOPHEN < 2 ug/ml (10-30); ALANINE AMINOTRANSFERASE 44 U/L (12-78); ALBUMIN 3.9 g/dL (3.4-5.0); ALCOHOL, BLOOD < 3 mg/dL (0-0); ALKALINE PHOSPHATASE 89 U/L (46-116); ASPARTATE AMINOTRANSFERASE 30 U/L (15-37); BILIRUBIN,DIRECT 0.1 mg/dL (0.0-0.2); BILIRUBIN,TOTAL 0.4 mg/dL (0.2-1.0); TOTAL PROTEIN, SERUM 7.8 g/dL (6.4-8.2)
[2020-12-19 15:44] LABS: BILIRUBIN,URINE NEGATIVE (NEGATIVE); COLOR,URINE YELLOW (YELLOW); LEUKOCYTE ESTERASE ,URINE NEGATIVE (NEGATIVE); NITRITE, URINE NEGATIVE (NEGATIVE); PH,URINE 5.5 (5.0-8.0); PROTEIN,URINE NEGATIVE (NEGATIVE); UGLUCOSE NEGATIVE (NEGATIVE); UROBILINOGEN,URINE 0.2 EU/dL (0.2)
--- NOTE | 2020-12-19 20:21 | NUR ---
PT ACCEPTED AT [facility], UNIT 2, UNDER THE CARE OF DR. ELI. CALL [phone] FOR REPORT
--- NOTE | 2020-12-19 20:30 | NUR ---
CALL THE CAR RESERVATION #[phone]
--- NOTE | 2020-12-19 22:41 | NUR ---
PER SEN FROM CALL THE CAR, STILL NO AMBULANCES AVAILABLE AT THIS TIME
[2020-12-19] MEDS ORDERED: OLANZAPINE 5 MG TABLET ONE (22:53)
--- NOTE | 2020-12-19 22:57 | NUR ---
[facility] ETA 30-40MINUTES
[2020-12-19] MEDS ORDERED: LORAZEPAM 0.5 MG TABLET ONE (22:58)
[2020-12-19 23:00] VITALS: BP 144/79
[2020-12-19] MEDS ORDERED: OLANZAPINE 5 MG TABLET PO ONE (23:00)
--- NOTE | 2020-12-19 23:01 | NUR ---
REPORT GIVEN TO [facility]
[2020-12-19] MEDS ORDERED: LORAZEPAM 1 MG TABLET PO ONE (23:30)
--- NOTE | 2020-12-19 23:30 | NUR ---
REPORT GIVEN TO [facility]
== END 2020-12-19 23:30 ==
LOC: ER 13:28
DX: R45.851 Suicidal ideations (principal); Z59.0 Homelessness; F20.9 Schizophrenia, unspecified; F31.9 Bipolar disorder, unspecified; I10 Essential (primary) hypertension; Z81.8 Family history of other mental and behavioral disorders; Z20.822 Contact with and (suspected) exposure to COVID-19; F17.200 Nicotine dependence, unspecified, uncomplicated
CPT/HCPCS: 36415; 80048; 80076; 80299; 80307; 80320; 81003; 85025; 87426; 99285; C9803; G0480

== ENCOUNTER → 2021-02-18 | Emergency (ER) | payer OTHER | END | disposition left against medical advice (07) | LOC: ER 09:26 | DX: R46.1 Bizarre personal appearance (principal); Z98.890 Other specified postprocedural states; Z59.0 Homelessness ==

== ENCOUNTER → 2021-02-18 | Emergency (ER) | payer OTHER ==
[~2021-02-18] VITALS: Ht 177.8 cm; Wt 113.4 kg
[~2021-02-18] MED LIST: LORAZEPAM 1 MG TABLET ONE
[2021-02-18 11:40] VITALS: BP 142/81
[2021-02-18 11:46] LABS: BILIRUBIN,URINE Negative (NEGATIVE); COLOR,URINE YELLOW (YELLOW); LEUKOCYTE ESTERASE ,URINE Negative (NEGATIVE); NITRITE, URINE Negative (NEGATIVE); PROTEIN,URINE Trace mg/dl (NEGATIVE); UGLUCOSE Negative (NEGATIVE); UROBILINOGEN,URINE 0.2 EU/dL (0.2)
[2021-02-18 11:47] LABS: BACTERIA,URINE None seen /HPF (None Seen); RBC,URINE 0-2 /HPF (0-2); SQUAMOUS EPITHELIAL CELL,UR None Seen /HPF (None Seen); WBC,URINE 0-2 /HPF (0-3)
--- NOTE | 2021-02-18 11:55 | NUR ---
PT sent by [facility] for, medical clearance. c/o suicidal ideation. ALERT ORIENTED X3 WITH NON LABORED SPONTANEOUS BREATHING.
[2021-02-18 12:03] LABS: BASOPHILS % (AUTO) 0.3 % (0.0-2.0); EOSINOPHILS % (AUTO) 0.9 % (0.0-6.0); HEMATOCRIT 42 % (39-51); HEMOGLOBIN 14.5 g/dL (13.5-17.5); LYMPHOCYTES % (AUTO) 36.4 % (20.0-44.0); MEAN CORPUSCULAR HGB CONC 34 g/dl (31.0-36.0); MEAN CORPUSCULAR VOLUME 95 fL (80-96); MONOCYTES # (AUTO) 0.7 K/uL (0.1-1.30); NEUTROPHILS # (AUTO) 4.5 K/uL (1.8-8.9); NEUTROPHILS % (AUTO) 54.4 % (43.0-81.0); PLATELET COUNT (AUTO) 261 K/uL (150-450); RED BLOOD CELL COUNT(AUTO) 4.44 MIL/uL (4.5-6.0); WHITE BLOOD COUNT (AUTO) 8.2 K/uL (4.3-11.0)
[2021-02-18] MEDS: LORAZEPAM 1 MG TABLET PO ONE (12:04)
[2021-02-18 12:06] LABS: CALCIUM, SERUM 8.4 mg/dL (8.5-10.1); CARBON DIOXIDE 27 mmol/L (21-32); CHLORIDE 101 mmol/L (98-107); CREATININE 0.7 mg/dL (0.6-1.3); GLUCOSE 100 mg/dL (74-106); POTASSIUM 3.5 mmol/L (3.5-5.1); SODIUM SERUM 138 mmol/L (136-145); UREA NITROGEN, BLOOD 8 mg/dL (7-18)
[2021-02-18 12:13] LABS: ACETAMINOPHEN 0 ug/ml (10-30); ALANINE AMINOTRANSFERASE 31 U/L (12-78); ALBUMIN 3.6 g/dL (3.4-5.0); ALCOHOL, BLOOD < 3 mg/dL (0-0); ALKALINE PHOSPHATASE 81 U/L (46-116); ASPARTATE AMINOTRANSFERASE 26 U/L (15-37); BILIRUBIN,DIRECT 0.2 mg/dL (0.0-0.2); BILIRUBIN,TOTAL 0.6 mg/dL (0.2-1.0)
--- NOTE | 2021-02-18 14:07 | NUR ---
ABBY faxed clincals to [facility] [[facility] [place] [address] FAX:[phone]] for voluntary psychiatric treatment.
--- NOTE | 2021-02-18 15:24 | NUR ---
SS Consult: SS Consult requested for SI & Homelessness. The pt. is a 60-year old Black male who presents to the ED with C/O SI & AH. The pt. appears unkempt, A&O X4 and makes good eye contact. Pt.'s has pressured speech. Pt.'s mood is depressed with a flat affect. The pt. states he is experiencing SI with no plan. Per pt., he is experiencing AH telling him to "walk into traffic". Pt. denies VH and denies HI. ABBY offered pt. voluntary admission to a psych facility for treatment and pt. is agreeable. ABBY explored pt.'s living situation. Pt. stated he is residing near the [place] as [place] gets case management services there and is to be house "soon". Pt. could not provide name of CM or facility address. Pt. states he has been experiencing homelessness for "over a year". ABBY explored pt.'s drug & alcohol use. Pt. sttes he drinks alcohol recreationally and denies drug use. ABBY explored pt.'s mental health Hx. Pt. states he has a Hx. of Paranoid Schizophrenia and depression has been med non-compliant (Seroquel, Trazadone and Clozapine) for the past 5 months. Pt. states he is ambulatory and receives food stamps and SSI. ABBY explored pt.'s support system. Pt. states he does not have a support system besides [facility]. Plan: ABBY referred pt. to [facility] [[facility] [place], [place] [id number] FAX:[phone]] for inpatient psychiatric treatment. Pt. signed homeless waiver and it was placed in the chart. ABBY provided pt. with homeless, and mental health resources and he accepted them : Year-round shelters: [facility] [address] [place] [address] ; [place] [place] [facility] [address] [place] [address]; [facility] [id number] [facility] [address] Winter Shelters: [facility] Provider: [place] [facility] [place] Address: [address], [address] # of Beds: 47 Population Served: [facility] 6 | [facility] Alisa [place] Provider: Home at Last Address: [address] [place] [address], [address] # of Beds: 66 Population Served: [place] Provider: First to Serve Address: [address] [facility], [address] # of Beds: 56 Population Served: [place] Provider: [facility] Address: [address] [facility], [address] # of Beds: 49 Population Served: [facility] 8 | [facility] Provider: First to Serve Address: [address] [facility], [address] # of Beds: 37 Population Served: [place] Hygiene: [facility]: [address] [facility] ; [facility] [address] [facility] ; [facility] [address] [facility] . Food Resources: [place] [facility] Pant[facility] at [facility]- [address] [facility]; Meet Each Need with Dignity ([facility]) [address] [facility]; [facility] Food Pantry [address] [facility]; [facility] 85[address] [facility]. Mental Health resources provided: [facility] [address] [place] [address] ; [facility] [address] [facility] [address], [place] [address] ; Shanks Joey [facility] [address] [place] [address] ; [facility] [address] [place] [address] Healthcare Clinics: [facility] [address] [facility], [address] [place]. [place] ; [facility] [address] [facility] [address] [place] [address]; [facility] [address] [place] [phone]) [phone] Counseling--Outpatient [facility] [address] [facility], [place] [address] (Specializes in in-depth psychotherapy for emotional distress: anxiety, depression, interpersonal conflicts, life transitions, childhood abuse) [facility] [address] [place] [address] (Assist with solving problem marital difficulties, separation & divorce, aging parents, & grief, chronic & terminal illness) [facility] [address] [place] [address] (Deal with loss & grief, anxiety, marital difficulties) Homebound/Mental Health Services [address] [facility], [address] [place] [address] (Provide in-home mental services to people who are incapable of leaving their homes) Organization for Needs of the Elderly Senior Service/Resource Center [address] [place] [address] [facility] [address] [facility] [place] [address] PSYCHIATRIC OUTPATIENT SERVICES [facility] Partial Hospitalization and Intensive Outpatient Program (Managed Care and [place] Only)[address] [facility]. [facility] [phone] [facility] [place] [facility] Partial Hospitalization and Outpatient Kfvfidv[address]19 [facility]. [address] [place], [place] [phone] [facility] Mental Health Center Wue22084 [facility] [address] [place], [place] [phone] [facility] Partial Hospitalization and Outpatient Yvixxis[address] [place], [phone] Substance Abuse resources provided included: [facility] Substance Abuse Self-Helpline ([facility]) ; CRI -HELP [address] [facility]. [place] [phone] ; [facility] Dustin [address] [facility] [address] ; [facility] Rehabilitation [facility] [address] [place] [facility] [place] [address] ; [facility] [address] [facility] [phone] ; [facility] 49[address] Jonathan Bronson [facility] [phone] ; Amarilys [facility] 909 [facility] [phone] ; [facility] Substance Abuse Helpline([facility] ; [facility] ; [facility]; [facility] Kelley; [facility] [place]; [facility] Jonathan Bronson; [facility] [place]; [place]; [facility] [place]; [facility]'s Dustin[employer] [place]; Alcoholics Anonymous -SFV; Uq-Wckb-Mvnujfw ; Marijuana Anonymous -SFV; Narcotics Anonymous www.na.org;
--- NOTE | 2021-02-18 15:48 | NUR ---
ACCEPTED TO [facility] UNDER DR ELI [phone] UNIT 2
--- NOTE | 2021-02-18 15:52 | NUR ---
REPORT GIVEN TO NURSE MUÑOZ.
--- NOTE | 2021-02-18 16:47 | NUR ---
CALLED [facility] FOR TRANSPORT TO [facility]. ETA 45-60 MINUTES.
--- NOTE | 2021-02-18 17:53 | NUR ---
GAVE REPORT TO [facility] UN[facility] 270.
== END ==
LOC: ER 11:38
DX: R45.851 Suicidal ideations (principal); F20.0 Paranoid schizophrenia; Z82.49 Family history of ischemic heart disease and other diseases of the circulatory system; Z59.0 Homelessness; F31.9 Bipolar disorder, unspecified; I10 Essential (primary) hypertension; Z20.822 Contact with and (suspected) exposure to COVID-19
CPT/HCPCS: 36415; 80048; 80076; 80143; 80307; 80320; 81001; 85025; 87426; 99285; C9803; G0480

== ENCOUNTER 2021-03-06 13:40 | Emergency (ER) | payer OTHER ==
[~2021-03-06] VITALS: Ht 175.3 cm; Wt 98.9 kg
--- NOTE | 2021-03-06 13:40 | NUR ---
PT BIB SELF C/O SI "I WANT TO RUN THRU TRAFFIC." PT IS AAOX4, NOT IN RESPIRATORY DISTRESS, V/S STABLE. KEPT RESTED AND COMFORTABLE. WILL CONTINUE TO MONITOR.
[2021-03-06 13:56] VITALS: BP 145/103
--- NOTE | 2021-03-06 14:02 | NUR ---
URINE SPECIMEN COLLECTED AND SENT TO LAB.
[2021-03-06 14:36] LABS: BASOPHILS % (AUTO) 0.3 % (0.0-2.0); EOSINOPHILS % (AUTO) 1.2 % (0.0-6.0); HEMATOCRIT 46 % (39-51); HEMOGLOBIN 15.2 g/dL (13.5-17.5); LYMPHOCYTES # (AUTO) 2.6 K/uL (0.8-4.8); LYMPHOCYTES % (AUTO) 32.9 % (20.0-44.0); MEAN CORPUSCULAR HGB CONC 33 g/dl (31.0-36.0); MEAN CORPUSCULAR VOLUME 95 fL (80-96); MONOCYTES # (AUTO) 0.6 K/uL (0.1-1.30); MONOCYTES % (AUTO) 7.5 % (2.0-12.0); NEUTROPHILS # (AUTO) 4.6 K/uL (1.8-8.9); NEUTROPHILS % (AUTO) 58.1 % (43.0-81.0); PLATELET COUNT (AUTO) 259 K/uL (150-450); RED BLOOD CELL COUNT(AUTO) 4.81 MIL/uL (4.5-6.0); WHITE BLOOD COUNT (AUTO) 7.9 K/uL (4.3-11.0)
[2021-03-06 14:45] LABS: CARBON DIOXIDE 25 mmol/L (21-32); CHLORIDE 104 mmol/L (98-107); CREATININE 0.8 mg/dL (0.6-1.3); GLUCOSE 84 mg/dL (74-106); POTASSIUM 3.7 mmol/L (3.5-5.1); SODIUM SERUM 139 mmol/L (136-145); UREA NITROGEN, BLOOD 12 mg/dL (7-18)
[2021-03-06 14:45] LABS: BILIRUBIN,URINE SMALL (NEGATIVE); COLOR,URINE DARK YELLOW (YELLOW); LEUKOCYTE ESTERASE ,URINE Negative (NEGATIVE); NITRITE, URINE Negative (NEGATIVE); PROTEIN,URINE 30 mg/dl (NEGATIVE); UGLUCOSE Negative (NEGATIVE); UROBILINOGEN,URINE 0.2 EU/dL (0.2)
[2021-03-06 14:51] LABS: ALANINE AMINOTRANSFERASE 65 U/L (12-78); ALBUMIN 3.7 g/dL (3.4-5.0); ALCOHOL, BLOOD < 3 mg/dL (0-0); ALKALINE PHOSPHATASE 83 U/L (46-116); ASPARTATE AMINOTRANSFERASE 52 U/L (15-37); BILIRUBIN,DIRECT 0.1 mg/dL (0.0-0.2); BILIRUBIN,TOTAL 0.3 mg/dL (0.2-1.0); TOTAL PROTEIN, SERUM 7.5 g/dL (6.4-8.2)
[2021-03-06 14:52] LABS: ACETAMINOPHEN 0 ug/ml (10-30)
--- NOTE | 2021-03-06 14:56 | NUR ---
COVID SPECIMEN OBTAINED AND SENT TO LAB.
[2021-03-06] MEDS ORDERED: OLANZAPINE 5 MG TABLET PO ONE (15:00)
[2021-03-06] MEDS ORDERED: OLANZAPINE 5 MG TABLET ONE (15:02)
[2021-03-06 15:06] LABS: BACTERIA,URINE Few /HPF (None Seen); RBC,URINE NONE SEEN /HPF (0-2); SQUAMOUS EPITHELIAL CELL,UR Rare /HPF (None Seen); WBC,URINE 0-2 /HPF (0-3)
--- NOTE | 2021-03-06 16:28 | NUR ---
CALLED [facility] ETA 45-60 MINS.
--- NOTE | 2021-03-06 17:20 | NUR ---
ACCEPTED AT PENDING SALE TO [facility] UNDER DR UPTON. REPORT GIVEN TO NURSING PSYCHIATRIC TECHNICIAN ASSISTANT REMIGIO.
== END 2021-03-06 17:51 ==
LOC: ER 13:41
DX: R45.851 Suicidal ideations (principal); F41.9 Anxiety disorder, unspecified; Z59.0 Homelessness; F31.9 Bipolar disorder, unspecified; F20.9 Schizophrenia, unspecified; Z20.822 Contact with and (suspected) exposure to COVID-19
CPT/HCPCS: 36415; 80048; 80076; 80143; 80307; 80320; 81001; 85025; 87426; 99285; C9803; G0480

== ENCOUNTER 2024-12-16 01:08 | Emergency (ER) | payer MEDICAID, OTHER ==
[~2024-12-16] VITALS: Ht 175.3 cm; Wt 88.5 kg
[2024-12-16 01:44] LABS: BASOPHILS % (AUTO) 0.3 % (0.0-2.0); EOSINOPHILS % (AUTO) 0.9 % (0.0-6.0); HEMATOCRIT 47 % (39-51); HEMOGLOBIN 15.6 g/dL (13.5-17.5); LYMPHOCYTES # (AUTO) 1.7 K/uL (0.8-4.8); LYMPHOCYTES % (AUTO) 40.5 % (20.0-44.0); MEAN CORPUSCULAR HEMOGLOBIN 33 PG (26.0-33.0); MEAN CORPUSCULAR HGB CONC 33 g/dl (31.0-36.0); MEAN CORPUSCULAR VOLUME 99 fL (80-96); MONOCYTES # (AUTO) 0.4 K/uL (0.1-1.30); MONOCYTES % (AUTO) 8.2 % (2.0-12.0); NEUTROPHILS # (AUTO) 2.2 K/uL (1.8-8.9); NEUTROPHILS % (AUTO) 50.1 % (43.0-81.0); PLATELET COUNT (AUTO) 233 K/uL (150-450); RED BLOOD CELL COUNT(AUTO) 4.72 MIL/uL (4.5-6.0); RED CELL DISTRIBUTION WIDTH 14.7 % (11.5-15.0); WHITE BLOOD COUNT (AUTO) 4.3 K/uL (4.3-11.0)
[2024-12-16 01:52] LABS: APPEARANCE,URINE CLEAR (CLEAR); BILIRUBIN,URINE NEGATIVE (NEGATIVE); BLOOD, URINE NEGATIVE Ery/uL (NEGATIVE); COLOR,URINE YELLOW (YELLOW); KETONES,URINE NEGATIVE (NEGATIVE); LEUKOCYTE ESTERASE ,URINE NEGATIVE (NEGATIVE); NITRITE, URINE NEGATIVE (NEGATIVE); PROTEIN,URINE NEGATIVE (NEGATIVE); UGLUCOSE NEGATIVE (NEGATIVE); UROBILINOGEN,URINE 0.2 EU/dL (0.2)
[2024-12-16 01:53] LABS: CARBON DIOXIDE 29 mmol/L (21-32); CHLORIDE 103 mmol/L (98-107); CREATININE 0.6 mg/dL (0.6-1.3); GLUCOSE 82 mg/dL (74-106); POTASSIUM 3.5 mmol/L (3.5-5.1); SODIUM SERUM 138 mmol/L (136-145); UREA NITROGEN, BLOOD 9 mg/dL (7-18)
[2024-12-16 01:57] LABS: AMPHETAMINE, URINE NEGATIVE (NEGATIVE); BARBITURATE, URINE NEGATIVE (NEGATIVE); BENZODIAZEPINE, URINE NEGATIVE (NEGATIVE); CANNABINOID, URINE NEGATIVE (NEGATIVE); COCCAINE, URINE NEGATIVE (NEGATIVE); OPIATE, URINE NEGATIVE (NEGATIVE); PHENCYCLIDINE SCREEN,URINE NEGATIVE (NEGATIVE)
[2024-12-16 02:01] LABS: ALANINE AMINOTRANSFERASE 61 U/L (12-78); ALBUMIN 3.9 g/dL (3.4-5.0); ALCOHOL, BLOOD 57 mg/dL (0-10); ALKALINE PHOSPHATASE 70 U/L (46-116); ASPARTATE AMINOTRANSFERASE 44 U/L (15-37); BILIRUBIN,DIRECT 0.1 mg/dL (0.0-0.2); BILIRUBIN,TOTAL 0.3 mg/dL (0.2-1.0); TOTAL PROTEIN, SERUM 8.1 g/dL (6.4-8.2)
[2024-12-16 02:04] LABS: SALICYLATE 0.7 mg/dL (2.8-20.0)
[2024-12-16 02:05] LABS: ACETAMINOPHEN <10 ug/ml (10-30)
[2024-12-16 08:31] VITALS: BP 135/81; TEMP 98.2; O2SAT 98
== END 2024-12-16 08:31 | disposition home or self-care (01) ==
LOC: ER 01:10
DX: R45.851 Suicidal ideations (principal); F17.200 Nicotine dependence, unspecified, uncomplicated; F20.9 Schizophrenia, unspecified; Z59.00 Homelessness unspecified; Z20.822 Contact with and (suspected) exposure to COVID-19; Z79.899 Other long term (current) drug therapy
CPT/HCPCS: 36415; 80048-TC; 80076-TC; 85025-TC; G0480

== ENCOUNTER 2025-02-22 17:05 | Emergency (ER) | payer OTHER ==
[~2025-02-22] VITALS: Ht 170.2 cm; Wt 86.2 kg
[2025-02-22 18:40] LABS: APPEARANCE,URINE CLEAR (CLEAR); BLOOD, URINE NEGATIVE Ery/uL (NEGATIVE); LEUKOCYTE ESTERASE ,URINE NEGATIVE (NEGATIVE); NITRITE, URINE NEGATIVE (NEGATIVE); UGLUCOSE NEGATIVE (NEGATIVE)
[2025-02-22 18:48] LABS: AMPHETAMINE, URINE NEGATIVE (NEGATIVE); BARBITURATE, URINE NEGATIVE (NEGATIVE); BENZODIAZEPINE, URINE NEGATIVE (NEGATIVE); CANNABINOID, URINE NEGATIVE (NEGATIVE); OPIATE, URINE NEGATIVE (NEGATIVE)
[2025-02-22 18:51] LABS: COCCAINE, URINE POSITIVE (NEGATIVE)
[2025-02-22 18:57] LABS: ADD URINE CULTURE NO; SQUAMOUS EPITHELIAL CELL,UR 0-2 /HPF (None Seen)
[2025-02-22 19:20] LABS: PLATELET COUNT (AUTO) 228 K/uL (150-450); RED BLOOD CELL COUNT(AUTO) 4.53 MIL/uL (4.5-6.0); RED CELL DISTRIBUTION WIDTH 13.9 % (11.5-15.0); WHITE BLOOD COUNT (AUTO) 6.9 K/uL (4.3-11.0)
[2025-02-22 19:29] LABS: CALCIUM, SERUM 8.9 mg/dL (8.5-10.1); CREATININE 0.6 mg/dL (0.6-1.3); SODIUM SERUM 132 mmol/L (136-145); UREA NITROGEN, BLOOD 10 mg/dL (7-18)
[2025-02-22 19:35] LABS: ALCOHOL, BLOOD < 3 mg/dL (0-10); ASPARTATE AMINOTRANSFERASE 53 U/L (15-37); TOTAL PROTEIN, SERUM 7.7 g/dL (6.4-8.2)
[2025-02-23 02:14] VITALS: BP 144/89; TEMP 98.5; O2SAT 100
== END 2025-02-23 02:15 ==
LOC: ER 17:08
DX: F32.A Depression, unspecified (principal); F14.10 Cocaine abuse, uncomplicated; F17.200 Nicotine dependence, unspecified, uncomplicated; F20.9 Schizophrenia, unspecified; Z59.00 Homelessness unspecified; Z20.822 Contact with and (suspected) exposure to COVID-19; Z79.899 Other long term (current) drug therapy
CPT/HCPCS: 36415; 80048-TC; 80076-TC; 81001; 85025-TC; 98960; G0480

== ENCOUNTER 2025-03-21 18:37 | Emergency (ER) | payer OTHER ==
[~2025-03-21] VITALS: Ht 170.2 cm; Wt 90.7 kg
[2025-03-21 19:10] LABS: PLATELET COUNT (AUTO) 240 K/uL (150-450); RED BLOOD CELL COUNT(AUTO) 4.52 MIL/uL (4.5-6.0); RED CELL DISTRIBUTION WIDTH 14.8 % (11.5-15.0); WHITE BLOOD COUNT (AUTO) 8.0 K/uL (4.3-11.0)
[2025-03-21 19:18] LABS: APPEARANCE,URINE CLEAR (CLEAR); BLOOD, URINE NEGATIVE Ery/uL (NEGATIVE); LEUKOCYTE ESTERASE ,URINE NEGATIVE (NEGATIVE); NITRITE, URINE NEGATIVE (NEGATIVE); UGLUCOSE NEGATIVE (NEGATIVE)
[2025-03-21 19:19] LABS: CALCIUM, SERUM 9.0 mg/dL (8.5-10.1); CREATININE 0.9 mg/dL (0.6-1.3); SODIUM SERUM 139 mmol/L (136-145); UREA NITROGEN, BLOOD 12 mg/dL (7-18)
[2025-03-21 19:25] LABS: ALCOHOL, BLOOD 92 mg/dL (0-10); ASPARTATE AMINOTRANSFERASE 40 U/L (15-37); TOTAL PROTEIN, SERUM 7.9 g/dL (6.4-8.2)
[2025-03-21 19:27] LABS: AMPHETAMINE, URINE NEGATIVE (NEGATIVE); BARBITURATE, URINE NEGATIVE (NEGATIVE); BENZODIAZEPINE, URINE NEGATIVE (NEGATIVE); CANNABINOID, URINE NEGATIVE (NEGATIVE); COCCAINE, URINE NEGATIVE (NEGATIVE); OPIATE, URINE NEGATIVE (NEGATIVE)
[2025-03-21 23:24] VITALS: BP 154/88; TEMP 98.4; O2SAT 96
== END 2025-03-21 23:26 ==
LOC: ER 18:42
DX: R45.851 Suicidal ideations (principal); F17.200 Nicotine dependence, unspecified, uncomplicated; F20.9 Schizophrenia, unspecified; F31.9 Bipolar disorder, unspecified; Z59.00 Homelessness unspecified; Z20.822 Contact with and (suspected) exposure to COVID-19; Z79.899 Other long term (current) drug therapy
CPT/HCPCS: 36415; 80048-TC; 80076-TC; 85025-TC; G0480

== ENCOUNTER 2025-05-07 19:45 | Emergency (ER) | payer OTHER ==
[~2025-05-07] VITALS: Ht 167.6 cm; Wt 90.7 kg
[2025-05-08 00:57] LABS: PLATELET COUNT (AUTO) 214 K/uL (150-450); RED BLOOD CELL COUNT(AUTO) 4.37 MIL/uL (4.5-6.0); RED CELL DISTRIBUTION WIDTH 14.5 % (11.5-15.0); WHITE BLOOD COUNT (AUTO) 6.0 K/uL (4.3-11.0)
[2025-05-08 01:01] LABS: APPEARANCE,URINE CLEAR (CLEAR); BLOOD, URINE NEGATIVE Ery/uL (NEGATIVE); LEUKOCYTE ESTERASE ,URINE NEGATIVE (NEGATIVE); NITRITE, URINE NEGATIVE (NEGATIVE); UGLUCOSE NEGATIVE (NEGATIVE)
[2025-05-08 01:03] LABS: CALCIUM, SERUM 8.5 mg/dL (8.5-10.1); CREATININE 0.8 mg/dL (0.6-1.3); SODIUM SERUM 137 mmol/L (136-145); UREA NITROGEN, BLOOD 8 mg/dL (7-18)
[2025-05-08 01:10] LABS: ASPARTATE AMINOTRANSFERASE 43 U/L (15-37); TOTAL PROTEIN, SERUM 7.2 g/dL (6.4-8.2)
[2025-05-08 01:12] LABS: BARBITURATE, URINE NEGATIVE (NEGATIVE); BENZODIAZEPINE, URINE NEGATIVE (NEGATIVE); CANNABINOID, URINE NEGATIVE (NEGATIVE); OPIATE, URINE NEGATIVE (NEGATIVE)
[2025-05-08 01:14] LABS: ADD URINE CULTURE NO; AMPHETAMINE, URINE POSITIVE (NEGATIVE); COCCAINE, URINE POSITIVE (NEGATIVE); SQUAMOUS EPITHELIAL CELL,UR 0-2 /HPF (None Seen)
[2025-05-08 02:20] VITALS: BP 142/86; TEMP 98.2; O2SAT 98
[2025-05-08] MEDS ORDERED: POTASSIUM CHLORIDE 20 MEQ TAB.PRT.SR PO ONE (02:21)
[2025-05-08] MEDS: POTASSIUM CHLORIDE 20 MEQ TAB.PRT.SR PO ONE (02:22)
== END 2025-05-08 02:45 ==
LOC: ER 19:51
DX: R45.851 Suicidal ideations (principal); Z00.8 Encounter for other general examination; F19.10 Other psychoactive substance abuse, uncomplicated; F20.9 Schizophrenia, unspecified; F31.9 Bipolar disorder, unspecified; F17.200 Nicotine dependence, unspecified, uncomplicated; Z59.00 Homelessness unspecified; Z79.899 Other long term (current) drug therapy
CPT/HCPCS: 36415; 80048-TC; 80076-TC; 81001; 85025-TC

== ENCOUNTER 2025-07-22 11:24 | Emergency (ER) | payer OTHER ==
[~2025-07-22] VITALS: Ht 165.1 cm; Wt 90.7 kg
[2025-07-22 12:00] LABS: PLATELET COUNT (AUTO) 183 K/uL (150-450); RED BLOOD CELL COUNT(AUTO) 4.56 MIL/uL (4.5-6.0); RED CELL DISTRIBUTION WIDTH 15.0 % (11.5-15.0); WHITE BLOOD COUNT (AUTO) 5.2 K/uL (4.3-11.0)
[2025-07-22 12:06] LABS: CALCIUM, SERUM 9.0 mg/dL (8.5-10.1); CREATININE 0.7 mg/dL (0.6-1.3); SODIUM SERUM 132 mmol/L (136-145); UREA NITROGEN, BLOOD 8 mg/dL (7-18)
[2025-07-22 12:16] LABS: ALCOHOL, BLOOD < 3 mg/dL (0-10); ASPARTATE AMINOTRANSFERASE 118 U/L (15-37); TOTAL PROTEIN, SERUM 8.2 g/dL (6.4-8.2)
[2025-07-22 12:16] LABS: APPEARANCE,URINE CLEAR (CLEAR); BLOOD, URINE NEGATIVE Ery/uL (NEGATIVE); LEUKOCYTE ESTERASE ,URINE NEGATIVE (NEGATIVE); NITRITE, URINE NEGATIVE (NEGATIVE); UGLUCOSE NEGATIVE (NEGATIVE)
[2025-07-22 12:40] LABS: AMPHETAMINE, URINE NEGATIVE (NEGATIVE); BARBITURATE, URINE NEGATIVE (NEGATIVE); BENZODIAZEPINE, URINE NEGATIVE (NEGATIVE); CANNABINOID, URINE NEGATIVE (NEGATIVE); OPIATE, URINE NEGATIVE (NEGATIVE)
[2025-07-22 12:41] LABS: COCCAINE, URINE POSITIVE (NEGATIVE)
[2025-07-22] MEDS ORDERED: POTASSIUM CHLORIDE 20 MEQ POWDER PACKET ONE (14:36)
[2025-07-22] MEDS: POTASSIUM CHLORIDE 20 MEQ POWDER PACKET PO ONE (14:38)
[2025-07-22 18:42] VITALS: BP 147/87; TEMP 98.5; O2SAT 99
== END 2025-07-22 17:55 ==
LOC: ER 11:54
DX: R45.851 Suicidal ideations (principal); F20.9 Schizophrenia, unspecified; F31.9 Bipolar disorder, unspecified; F17.200 Nicotine dependence, unspecified, uncomplicated; Z59.00 Homelessness unspecified; Z79.899 Other long term (current) drug therapy
CPT/HCPCS: 36415; 80048-TC; 80076-TC; 85025-TC; G0480